=== PATIENT | female | born 1985 | race Caucasian/White ===

== ENCOUNTER 2020-02-22 20:55 | Emergency (ER) | payer OTHER, SELFPAY ==
[2020-02-22 21:00] VITALS: BP 133/91; PULSE 85; RESP 18; TEMP 36.3; O2SAT 100
--- NOTE | 2020-02-22 21:10 | ED.GENADULT ---
HPI - General Adult General Chief complaint: Unspecified Stated complaint: Perscription refill Time Seen by Provider: 02/22/20 21:07 Source: patient Mode of arrival: ambulatory Limitations: no limitations History of Present Illness HPI narrative: Patient is a 34-year-old female with a history of seizure disorder who presents to the emergency department because she is in need of a refill for her Lamictal prescription. Patient has been taking 400 mg of Lamictal twice daily for over 20 years. She follows with a neurologist Dr. Conrad, but was notified today that he left the neurology practice when she tried to refill her prescription and she was unable to have the prescription refilled. The neurology office was unable to schedule her an appointment or call in a prescription for her. She has not missed any doses today but is due for a dose tonight. She denies any recent illnesses. Her primary care physician is Dr. Herbert, she states that she recently established with him and did not try to call the office to see if he would refill the prescription but was referred to the emergency department Related Data Home Medications Medication Instructions Recorded Confirmed dextroamphetamine-amphetamine 02/22/20 lamotrigine 02/22/20 Allergies Allergy/AdvReac Type Severity Reaction Status Date / Time No Known Allergies Allergy Unverified 02/22/20 21:02 Review of Systems Review of Systems: Narrative: CONSTITUTIONAL: Denies fever CARDIOVASCULAR: Denies chest pain RESPIRATORY: Denies cough or dyspnea. GASTROINTESTINAL: Denies abdominal pain SKIN: Denies rash MUSCULOSKELETAL: Denies back pain NEUROLOGIC: Denies headache PMFSH Past Medical History Medical History (Updated 02/22/20 @ 21:20 by Ellyn Covington MD) Epilepsy Surgical History Surgical History (Updated 02/22/20 @ 21:20 by Ellyn Covington MD) History of appendectomy History of tonsillectomy Social History Social History (Updated 02/22/20 @ 21:21 by Ellyn Covington MD) Alcohol intake: never Substance use: never Living arrangements: with family Gender identity (if verbalized by the patient): Female Exam Narrative: Exam Narrative: GENERAL: Awake, alert, conversant HEAD: Normocephalic, atraumatic. EYES: PERRLA and EOMI. ENT: Nares clear, no rhinorrhea or epistaxis. Mucous membranes moist. NECK: Supple. CHEST: No respiratory distress, breathing even and non labored HEART: Regular rate, sinus rhythm ABDOMEN:Non distended, non tender EXTREMITIES: Normal range of motion. No edema. SKIN: Warm, dry, no rash. NEURO:No focal deficits. Alert and oriented x3 Course Vital Signs Vital signs: Vital Signs Temperature 36.3 C L 02/22/20 21:00 Pulse Rate 85 02/22/20 21:00 Respiratory Rate 18 02/22/20 21:00 Blood Pressure 133/91 H 02/22/20 21:00 Pulse Oximetry 100 02/22/20 21:00 Temperature 36.3 C L 02/22/20 21:00 Pulse Rate 85 02/22/20 21:00 Respiratory Rate 18 02/22/20 21:00 Blood Pressure 133/91 H 02/22/20 21:00 Pulse Oximetry 100 02/22/20 21:00 Medical Decision Making MDM Narrative Medical decision making narrative: I was able to verify the patient's prescription in her EMR. I will prescribe a 1 month prescription until patient is able to establish with a new neurologist. Pt has no other complaints. Pt then discharged home. Vital Signs Vital Signs: Vital Signs Temperature 36.3 C L 02/22/20 21:00 Pulse Rate 85 02/22/20 21:00 Respiratory Rate 18 02/22/20 21:00 Blood Pressure 133/91 H 02/22/20 21:00 Pulse Oximetry 100 02/22/20 21:00 Temperature 36.3 C L 02/22/20 21:00 Pulse Rate 85 02/22/20 21:00 Respiratory Rate 18 02/22/20 21:00 Blood Pressure 133/91 H 02/22/20 21:00 Pulse Oximetry 100 02/22/20 21:00 Discharge Plan Discharge Clinical Impression: Prescription refill Patient Disposition: Home, Self-Care Condition: Stable Additional Instructions: Please fo
== END 2020-02-22 21:34 | disposition home or self-care (01) ==
LOC: ANHED 21:26
PROVIDERS: Emergency Provider Emergency Medicine; PCP Emergency Medicine
DX: G40.909 Epilepsy, unspecified, not intractable, without status epilepticus (principal)
CPT/HCPCS: 99281

== ENCOUNTER 2024-06-29 10:20 | Outpatient (CLI) | payer OTHER, SELFPAY ==
--- NOTE | ~2024-06-29 | XR_ITS ---
Clinical Indication: Chest pain PA and lateral views of the chest: Comparison: 03/05/2014 Findings: The lungs are clear, without evidence of focal consolidation or pleural effusion. Cardiome diastinal silhouette is within normal limits. Bones and soft tissues are unremarkable. Impression: Normal chest. Reviewed, dictated and finalized at location . Impression: Normal chest.
--- OUTSIDE RECORDS SUMMARY | 2024-06-29 11:42 | XMS_ITS | Data Portability ---
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 Patient will come back in a year unless there are new symptoms. [email or web address] Not available 01/25/2024 15:49:28 Plan of Treatment Reminders Order Date Submit Date Provider Last Modified By Organization Details Last Modified Time Details Appointments None recorded. Lab hbcab (hepatitis B core Ab) igm, serum 2023 [facility] [place] (Lab), [address], [place], [address], 19:53:02 HBsAg (hepatitis B surface Ag), serum [address] [facility] [place] (Lab), [address], [place], [address], 4 19:52:59 hepatitis C virus Ab, serum [address] [facility] [place] (Lab), [address], [address], 4 19:52:59 HIV 1+2 AB + HIV 1 p24 Ag, qualitative immunoassay , serum [address] [facility] [place] (Lab), [address] [place], [address], 4 19:53:00 RPR (rapid plasma reagin), serum 2023 [facility] [place] (Lab), [address] [place], [address], 4 19:53:02 dhea-sulfat e, serum 2023 [facility] [place] (Lab), [address] [place], [address], 4 19:52:59 hormone panel, serum or plasma 2023 [facility] [place] (Lab), [address] [place], [address], 4 19:53:01 progesteron e, serum [address] [facility] [place] (Lab), [address] [place], [address], 4 19:53:00 prolactin, serum 2023 [facility] [place] (Lab), [address] [place], [address], 4 19:53:00 shbg (sex hormone-bin ding globulin), serum [address] [facility] [place] (Lab), [address] [place], [address], 4 19:53:01 TSH, serum or plasma [address] [facility] [place] (Lab), [address] [place], [address], 4 19:53:01 testosteron e free/testos terone total, ratio, serum 2023 [facility] [place] (Lab), [address], [place], [address], 4 19:53:02 CBC w/ auto diff [address] [facility] [place] (Lab), [address], [place], [address], 4 19:52:58 Referral None recorded. Procedures None recorded. Surgeries None recorded. Imaging US, pelvis, complete 2023 024 [facility], [address], [address], [place], [address], 5 04:09:52 US, pelvis [address], [address], [place], [address], 4 20:16:33 US, transvagina l [address], [address], [address], [place], [address], 4 20:16:33 US, pelvis, complete 2023 024 [facility], [address], [address], [place], [address], 4 04:03:47 US, pelvis 2022 023 [email or web address] [place], [address], [place], [address], 3 21:26:42 US, transvagina l 2022 023 [email or web address] [place], [address], [place], [address], 3 21:26:42 Medication Orders None recorded. Patient TargetsNo targets recorded. Patient InstructionsNo instructions recorded. Reason for Referral None Reported. Results Created Date Observation Date Name Description Value Unit Range Abnormal Flag Note LastModifiedBy Organization Detail LastModifiedTime 12/30/19 23 12/29/2022 HEPAT ITIS B SURFA CE ANTIG EN hepatitis B surface antigen Non-re active non-re active This assay was perfo rmed using [employer] ratio n reage nts and test kits. Value s obtai mary with other assay metho ds or kits canno t be used inter beltran eably . Not Available [facility] (Lab) [address], [place], [address], 01/01/2023 18:35:25 12/30/19 23 12/29/2022 HIV 1/2 ANTIG EN/AN TIBOD Y, REFLE X CONFI RMATI ON HIV antigen/anti body Nonrea ctive nonrea ctive HIV-1 antig en and HIV-1 /HIV- 2 antib odies were not detec dewayne. No labor atory evide nce of HIV infec tion. Not Available [facility] (Lab) [address], [place], [address], 01/01/2023 18:35:26 12/30/19 23 12/29/2022 HEPAT ITIS C ANTIB BLAS SCREE N, REFLE X TO CONFI RMATI ON hepatitis C antibody Non-re active non-re active Antib odies to HCV Not Detec dewayne, does not exclu de the possi bilit y of expos ure to HCV. Not Available [facility] (Lab) [address], [place], [address], 01/01/2023 18:35:26 12/30/19 23 12/29/2022 PROGE STERO NE progesterone 0.37 NG/mL This assay was perfo rmed using [employer] reage nts and test kits. Value s obtai mary with other assay metho ds or kits canno t be used inter beltran eably . Femal e Proge stero ne Range s: Folli cular phase 0.06- 0.89 ng/mL Ovula tion phase 0.12- 12.00 ng/mL Lutea l phase 1.83- 23.90 ng/mL Postm enopa usal< 0.05- 0.13 ng/mL Healt hy Pregn ant Women 1st Trime ster1 1.0-4 4.30 2nd Trime ster2 5.40- 83.30 3rd Trime ster5 8.70- 214.0 0 Not Available [facility] (Lab) [address] [place], [address], 01/01/2023 18:35:26 12/30/19 23 12/29/2022 PROLA CTIN prolactin, total 11.80 NG/mL 4.79-2 3.30 This assay was perfo rmed using [employer] ratio n reage nts and test kits. Value s obtai mary with other assay metho ds or kits canno t be used inter beltran eay . Not Available [facility] (Lab) [address] [place], [address], 01/01/2023 18:35:27 12/30/19 23 12/29/2022 FSH, LH, ESTRA DIOL estradiol 139.0 pg/mL This assay was perfo rmed using [employer] reage nts and test kits. Value s obtai mary with other assay metho ds or kits canno t be used inter beltran eay . Femal e Estra diol Range s: Folli cular phase 12.4- 233 pg/mL Ovula tion phase 41.0- 398 pg/mL Lutea l phase 22.3- 341 pg/mL Postm enopa usal< 5-138 pg/mL Healt hy Pregn ant Women 1st Trime ster1 54-32 43 pg/mL 2nd Trime ster1 561-2 1280 pg/mL 3rd Trime ster8 525-> 12905 pg/mL Not Available [facility] (Lab) [address] [place], [address], 01/01/2023 18:35:27 12/30/19 23 12/29/2022 FSH, LH, ESTRA DIOL FSH 4.3 mIU/m L This assay was perfo rmed using [employer] n reage nts and test kits. Value s obtai mary with other assay metho ds or kits canno t be used inter the [facility] . Femal es Folli cular : 3.5-1 2.5 mIU/m L Ovula tion: 4.7-2 1.5 mIU/m L Lutea l: 1.7-7 .7 mIU/m L Postm enopa use: 25.8- 134.8 mIU/m L Not Available [facility] (Lab) [address] , [place], [address], 01/01/2023 18:35:27 12/30/19 23 12/29/2022 FSH, LH, ESTRA DIOL LH 8.5 mIU/m L This assay was perfo rmed using [employer] reage nts and test kits. Value s obtai mary with other assay metho ds or kits canno t be used inter the [facility] . Femal es Mid-F ollic ular: 2.4-1 2.6 mIU/m L Mid-C ycle: 14.0- 95.6 mIU/m L Mid-L uteal : 1.0-1 1.4 mIU/m L Postm enopa use: 7.7-5 8.5 mIU/m L Not Available [facility] (Lab) [address], [place], [address], 01/01/2023 18:35:27 12/30/19 23 12/29/2022 TSH, REFLE X FREE T4 TSH 1.73 uIU/m L 0.30-5 .33 Not Available [facility] (Lab) [address] , [place], [address], 01/01/2023 18:35:28 12/30/19 23 12/29/2022 CBC W/DIF F WBC 5.2 10'3/ uL 3.6-10 .2 Not Available [facility] (Lab) [address], [place], [address], 01/01/2023 18:35:28 12/30/19 23 12/29/2022 CBC W/DIF F RBC 3.95 10'6/ uL (based on docume nted legal sex) 4.10-5 .30 low Not Available [facility] (Lab) [address], [place], [address], 01/01/2023 18:35:28 12/30/19 23 12/29/2022 CBC W/DIF F HGB 12.1 g/dL (based on docume nted legal sex) 11.9-1 5.8 Not Available [facility] (Lab) [address], [place], [address], 01/01/2023 18:35:28 12/30/19 23 12/29/2022 CBC W/DIF F HCT 37.7 % (based on docume nted legal sex) 37.4-4 8.3 Not Available [facility] (Lab) [address], [place], [address], 01/01/2023 18:35:28 12/30/19 23 12/29/2022 CBC W/DIF F MCV 95.4 fL 82.0-9 9.0 Not Available [facility] (Lab) [address], [place], [address], 01/01/2023 18:35:28 12/30/19 23 12/29/2022 CBC W/DIF F MCH 30.6 pg 27.0-3 3.0 Not Available [facility] (Lab) [address], [place], [address], 01/01/2023 18:35:28 12/30/19 23 12/29/2022 CBC W/DIF F MCHC 32.1 g/dL 32.0-3 6.0 Not Available [facility] (Lab) [address], [place], [address], 01/01/2023 18:35:28 12/30/19 23 12/29/2022 CBC W/DIF F RDW 13.0 % 11.0-1 5.0 Not Available [facility] (Lab) [address], [place], [address], 01/01/2023 18:35:28 12/30/19 23 12/29/2022 CBC W/DIF F plt 298 10'3/ uL 150-45 0 Not Available [facility] (Lab) [address], [place], [address], 01/01/2023 18:35:28 12/30/19 23 12/29/2022 CBC W/DIF F MPV 10.0 fL 9.8-12 .7 Not Available [facility] (Lab) [address], [place], [address], 01/01/2023 18:35:28 12/30/19 23 12/29/2022 CBC W/DIF F NRBC's 0.0 % 0 Not Available [facility] (Lab) [address], [place], [address], 01/01/2023 18:35:28 12/30/19 23 12/29/2022 CBC W/DIF F absolute NRBCs 0.0 10'3/ uL 0 Not Available [facility] (Lab) [address], [place], [address], 01/01/2023 18:35:28 12/30/19 23 12/29/2022 CBC W/DIF F neutrophils 61.6 % 37.0-7 2.0 Not Available [facility] (Lab) [address], [place], [address], 01/01/2023 18:35:28 12/30/19 23 12/29/2022 CBC W/DIF F lymphocytes 30.0 % 16.0-4 8.0 Not Available [facility] (Lab) [address], [place], [address], 01/01/2023 18:35:28 12/30/19 23 12/29/2022 CBC W/DIF F monocytes 4.4 % 4.0-14 .0 Not Available [facility] (Lab) [address], [place], [address], 01/01/2023 18:35:28 12/30/19 23 12/29/2022 CBC W/DIF F eosinophils 2.5 % 0.0-9. 0 Not Available [facility] (Lab) [address], [place], [address], 01/01/2023 18:35:28 12/30/19 23 12/29/2022 CBC W/DIF F basophils 1.3 % 0.0-2. 0 Not Available [facility] (Lab) [address], [place], [address], 01/01/2023 18:35:28 12/30/19 23 12/29/2022 CBC W/DIF F immature granulocytes 0.2 % no define d refere nce range Not Available [facility] (Lab) [address], [place], [address], 01/01/2023 18:35:28 12/30/19 23 12/29/2022 CBC W/DIF F absolute neutrophils 3.2 10'3/ uL 1.1-6. 0 Not Available [facility] (Lab) [address], [place], [address], 01/01/2023 18:35:28 12/30/19 23 12/29/2022 CBC W/DIF F absolute lymphocytes 1.6 10'3/ uL 0.7-3. 4 Not Available [facility] (Lab) [address], [place], [address], 01/01/2023 18:35:28 12/30/19 23 12/29/2022 CBC W/DIF F absolute monocytes 0.2 10'3/ uL 0.3-1. 0 low Not Available [facility] (Lab) [address], [place], [address], 01/01/2023 18:35:28 12/30/19 23 12/29/2022 CBC W/DIF F absolute eosinophils 0.1 10'3/ uL 0.0-0. 6 Not Available [facility] (Lab) [address], [place], [address], 01/01/2023 18:35:28 12/30/19 23 12/29/2022 CBC W/DIF F absolute basophils 0.1 10'3/ uL 0.0-0. 1 Not Available [facility] (Lab) [address], [place], [address], 01/01/2023 18:35:28 12/30/19 23 12/29/2022 CBC W/DIF F absolute immature granulocytes 0.0 10'3/ uL 0.00-0 .10 12/30 2:08 AM: P indic ates parti al resul ts on a panel have been relea sed. Addit ional resul ts will follo w. 12/30 2:09 AM: This resul t has been final verif ied. No addit ional or beltran ed resul ts are expec dewayne. Not Available [facility] (Lab) [address], [place], [address], 01/01/2023 18:35:28 12/30/19 23 12/29/2022 RPR SCREE N/REF NICOLE TITER /FTA RPR screen Nonrea ctive nonrea ctive Not Available [facility] (Lab) [address], [place], [address], 01/01/2023 18:35:28 12/30/19 23 12/29/2022 HEPAT ITIS B CORE, IGM hepatitis B core IgM antibody Negati ve negati ve Not Available [facility] (Lab) [address], [place], [address], 01/01/2023 18:35:29 12/30/19 23 12/29/2022 TESTO STERO NE, FREE( DIALY SIS) AND TOTAL (LC/M S/MS) testosterone , total 26 NG/dL 2-45 For addit ional alfredo manning e refer to http: //candelraia bonilla.que stdia gnost ics.c om/fa q/ Total Testo stero neLCM SMSFA Q165 (This link is being provi ded for madisonjennyfer teixeira nal/ educa bianka l purpo ses only. ) This test was devel oped and its lilo tical perfo rmanc e darren cteri stics have been deter mined by [employer] osttoya s [place]iezer [place], [place]. It has not been clear ed or appro felisa by the U.S. Food and Drug Admin istra tion. This assay has been valid ated pursu ant to the CLIA regul ation s and is used for clini cynthia purpo ses. Not Available [facility] (Lab) [address], [place], [address], 01/01/2023 18:35:29 12/30/19 23 12/29/2022 TESTO STERO NE, FREE( DIALY SIS) AND TOTAL (LC/M S/MS) testosterone , free 1.6 pg/mL 0.1-6. 4 This test was devel oped and its lilo tical perfo rmanc e darren cteri stics have been deter mined by [employer] rudy s [facility] [place] [place]. It has not been clear ed or appro felisa by the U.S. Food and Drug Admin istra tion. This assay has been valid ated pursu ant to the CLIA regul ation s and is used for clini cynthia purpo ses. Perfo rming Organ izati on [facility] ruffinjimena bonilla: Site ID: AMD Name: Roque Caalo ls Insti tabatha Addre ss: [id number] [employer] [facility] [address] [place], [place] Direc tor: Thalia Lawson MD PhD Not Available [facility] (Lab) [address] [place], [address], 01/01/2023 18:35:29 12/30/19 23 12/29/2022 IMAGE GUIDE D PAP AND HPV REGAR DLESS image guided Pap, HPV regardless of Pap result SEE RESULT S BELOW CASE REPOR T: Cytol ogy Gynec ologi cynthia Repor t Case: [id number] Autho shayan negron Provi magnus: Tahmina Simpson, PRABHU Colle cted: 12/29 1429 Order ing Locat ion: [place] Path[facility] Recei felisa: 12/30 0939 First Scree n: Alesia Fritz Rescr een: Bunny herrera, Kandi vivas, CT Speci men: Chikis sheikh Pap - Image d, Cervi x STATE MENT OF ADEQU ACY: Satis facto ry for evalu ation Trans forma tion zone compo nent prese nt FINAL DIAGN OSIS: Negat darrick for Intra epith elial Lesjimena bonilla or Jimena dove (NIL) . Elect marcelle bruno kolton d by Bunny herrera, Kandi vivas, CT on 2022 at 9:30 PM ----- ----- ----- ----- ----- ----- ----- ----- ----- ----- ----- ----- ----- ----- ----- ----- ----- ---- HPV RESUL TS: HPV mRNA E6/E7 : No HPV mRNA Detec dewayne NOTE: This high risk HPV mRNA assay detec ts fourt een high- risk HPV types (16, 18, 31, 33, 35, 39, 45, 51, 52, 56, 58, 59, 66, 68) witho ut diffe renti ation . COMME NT: This speci men was revie wed by a Cytot echno logis t and/o r Patho logis t (as indic ated in this repor t) after evalu ation using the Thinp rep Imagi ng Syste m. CLINI CYNTHIA INFOR MATIO N: Menst rual Statu s: LMP (if appli cable ): Clini cynthia Histo ry/Pr eviou s Pap: Type of Neopl aileen (if appli cable ): Signi fican t Clini cynthia Findi ngs: Other Histo ry: Hormo sebas (if appli cable ): PAP EDUCA BIANKA L NOTE: The Pap Test is a scree aguilar test with an inher ent false negat darrick rate. Liqui d-bas ed sampl ing may decre ase, but will not elimi sincere, false negat darrick resul ts. A negat darrick resul t does not precl ude the prese nce and/o r devel opmen t of disea se, since the prese nce of abnor mal cells in the sampl e depen ds on the locat ion of the lesio n and sampl ing techn ique. Marian nued regul ar scree aguilar is the best metho d of cance r preve ntion . If repor dewayne cytol ogic findi ng do not corre late with physi cynthia and/o r histo rical findi ngs, furth er inves tigat ion is recom shannan d, as clini tk warra nted. Not Available [facility] (Lab) [address], [place], [address], 01/01/2023 22:32:33 12/30/19 23 12/29/2022 TRICH OMONA S VAGIN NHUNG (RRNA ) trichomonas vaginalis ribosomal RNA (rrna) Negati ve negati ve Not Available [facility] (Lab) [address] [place], [address], 01/01/2023 22:32:34 12/30/19 23 12/29/2022 CT/GC (DONNIE) , THINP REP VIAL chlamydia trachomatis, PCR Negati ve negati ve Not Available [facility] (Lab) [address] [place], [address], 01/01/2023 22:32:34 12/30/19 23 12/29/2022 CT/GC (DONNIE) , THINP REP VIAL neisseria gonorrhoeae, PCR Negati ve negati ve Not Available [facility] (Lab) [address], [address], 01/01/2023 22:32:34 12/30/19 23 12/29/2022 pregn richard test, urine HCG negati ve Not Available [place] [address], [place], [address], 12/29/2022 10:46:04 01/25/20 24 01/25/2024 CBC W/DIF F WBC 5.1 10'3/ uL 3.5-10 .5 Not Available [facility] (Lab) [address], [place], [address], 02/02/2024 19:52:58 01/25/20 24 01/25/2024 CBC W/DIF F RBC 3.94 10'6/ uL (based on docume nted legal sex) 3.80-5 .20 Not Available [facility] (Lab) [address], [place], [address], 02/02/2024 19:52:58 01/25/20 24 01/25/2024 CBC W/DIF F HGB 11.5 g/dL (based on docume nted legal sex) 11.6-1 5.4 low Not Available [facility] (Lab) [address], [place], [address], 02/02/2024 19:52:58 01/25/20 24 01/25/2024 CBC W/DIF F HCT 35.8 % (based on docume nted legal sex) 34.0-4 5.0 Not Available [facility] (Lab) [address], [place], [address], 02/02/2024 19:52:58 01/25/20 24 01/25/2024 CBC W/DIF F MCV 90.9 fL 80.0-9 9.0 Not Available [facility] (Lab) [address], [place], [address], 02/02/2024 19:52:58 01/25/20 24 01/25/2024 CBC W/DIF F MCH 29.2 pg 27.0-3 4.0 Not Available [facility] (Lab) [address], [place], [address], 02/02/2024 19:52:58 01/25/20 24 01/25/2024 CBC W/DIF F MCHC 32.1 g/dL 32.0-3 5.5 Not Available [facility] (Lab) [address], [place], [address], 02/02/2024 19:52:58 01/25/20 24 01/25/2024 CBC W/DIF F RDW 12.8 % 11.0-1 5.0 Not Available [facility] (Lab) [address], [place], [address], 02/02/2024 19:52:58 01/25/20 24 01/25/2024 CBC W/DIF F plt 340 10'3/ uL 150-40 0 Not Available [facility] (Lab) [address], [place], [address], 02/02/2024 19:52:58 01/25/20 24 01/25/2024 CBC W/DIF F MPV 9.4 fL 8.8-12 .1 Not Available [facility] (Lab) [address], [place], [address], 02/02/2024 19:52:58 01/25/20 24 01/25/2024 CBC W/DIF F NRBC's 0.0 % 0.0 Not Available [facility] (Lab) [address], [place], [address], 02/02/2024 19:52:58 01/25/20 24 01/25/2024 CBC W/DIF F absolute NRBCs 0.0 10'3/ uL no refere nce range establ ished Not Available [facility] (Lab) [address], [place], [address], 02/02/2024 19:52:58 01/25/20 24 01/25/2024 CBC W/DIF F neutrophils 52.4 % 34.0-7 3.0 Not Available [facility] (Lab) [address], [place], [address], 02/02/2024 19:52:58 01/25/20 24 01/25/2024 CBC W/DIF F lymphocytes 38.7 % 15.0-5 0.0 Not Available [facility] (Lab) [address], [place], [address], 02/02/2024 19:52:58 01/25/20 24 01/25/2024 CBC W/DIF F monocytes 5.3 % 1.0-15 .0 Not Available [facility] (Lab) [address] [place], [address], 02/02/2024 19:52:58 01/25/20 24 01/25/2024 CBC W/DIF F eosinophils 1.8 % 0.0-8. 0 Not Available [facility] (Lab) [address] [place], [address], 02/02/2024 19:52:58 01/25/20 24 01/25/2024 CBC W/DIF F basophils 1.6 % 0.0-2. 0 Not Available [facility] (Lab) [address] [place], [address], 02/02/2024 19:52:58 01/25/20 24 01/25/2024 CBC W/DIF F immature granulocytes 0.2 % no define d refere nce range Not Available [facility] (Lab) [address] [place], [address], 02/02/2024 19:52:58 01/25/20 24 01/25/2024 CBC W/DIF F absolute neutrophils 2.7 10'3/ uL 1.5-8. 0 Not Available [facility] (Lab) [address], [place], [address], 02/02/2024 19:52:58 01/25/20 24 01/25/2024 CBC W/DIF F absolute lymphocytes 2.0 10'3/ uL 1.0-4. 0 Not Available [facility] (Lab) [address] [place], [address], 02/02/2024 19:52:58 01/25/20 24 01/25/2024 CBC W/DIF F absolute monocytes 0.3 10'3/ uL 0.2-1. 0 Not Available [facility] (Lab) [address], [place], [address], 02/02/2024 19:52:58 01/25/20 24 01/25/2024 CBC W/DIF F absolute eosinophils 0.1 10'3/ uL 0.0-0. 6 Not Available [facility] (Lab) [address], [place], [address], 02/02/2024 19:52:58 01/25/20 24 01/25/2024 CBC W/DIF F absolute basophils 0.1 10'3/ uL 0.0-0. 3 Not Available [facility] (Lab) [address] [place], [address], 02/02/2024 19:52:58 01/25/20 24 01/25/2024 CBC W/DIF F absolute immature granulocytes 0.0 10'3/ uL 0.00-0 .10 01/25 3:20 AM: P indic ates parti al resul ts on a panel have been relea sed. Addit ional resul ts will follo w. 01/25 3:20 AM: This resul t has been final verif ied. No addit ional or beltran ed resul ts are expec dewayne. Not Available [facility] (Lab) [address] [place], [address], 02/02/2024 19:52:58 01/25/20 24 01/25/2024 HEPAT ITIS C ANTIB BLAS SCREE N, REFLE X TO CONFI RMATI ON hepatitis C antibody Non-re active non-re active Antib odies to HCV Not Detec dewayne, does not exclu de the possi bilit y of expos ure to HCV. Not Available [facility] (Lab) [address], [place], [address], 02/02/2024 19:52:59 01/25/20 24 01/25/2024 DHEA SULFA TE DHEA-sulfate 121 ug/dL Femal e Range s Age(y ) Range (ug/d L) 10-15 34-28 0 15-20 65-36 8 20-25 148-4 07 25-35 99-34 0 35-45 61-33 7 45-55 35-25 6 55-65 19-20 5 65-75 9-246 > 75 12-15 4 Not Available [facility] (Lab) [address], [place], [address], 02/02/2024 19:52:59 01/25/20 24 01/25/2024 HEPAT ITIS B SURFA CE ANTIG EN hepatitis B surface antigen Non-re active non-re active This assay was perfo rmed using [employer] reage nts and test kits. Value s obtai mary with other assay metho ds or kits canno t be used inter beltran eably . Not Available [facility] (Lab) [address], [place], [address], 02/02/2024 19:52:59 01/25/20 24 01/25/2024 HIV 1/2 ANTIG EN/AN TIBOD Y, REFLE X CONFI RMATI ON HIV antigen/anti body Nonrea ctive nonrea ctive HIV-1 antig en and HIV-1 /HIV- 2 antib odies were not detec dewayne. No labor atory evide nce of HIV infec tion. Not Available [facility] (Lab) [address], [place], [address], 02/02/2024 19:53:00 01/25/20 24 01/25/2024 PROLA CTIN prolactin, total 9.17 NG/mL 4.79-2 3.30 This assay was perfo rmed using [employer] reage nts and test kits. Value s obtai mary with other assay metho ds or kits canno t be used inter [facility] . Not Available [facility] (Lab) [address] [place], [address], 02/02/2024 19:53:00 01/25/20 24 01/25/2024 PROGE STERO NE progesterone 1.64 NG/mL This assay was perfo rmed using [employer] reage nts and test kits. Value s obtai mary with other assay metho ds or kits canno t be used inter [facility] . Femal e Proge stero ne Range s: Folli cular phase 0.06- 0.89 ng/mL Ovula tion phase 0.12- 12.00 ng/mL Lutea l phase 1.83- 23.90 ng/mL Postm enopa usal <0.05 -0.13 ng/mL Healt hy Pregn ant Women 1st Trime ster 11.0- 44.30 2nd Trime ster 25.40 -83.3 0 3rd Trime ster 58.70 -214. 00 Not Available [facility] (Lab) [address] [place], [address], 02/02/2024 19:53:00 01/25/20 24 01/25/2024 FSH, LH, ESTRA DIOL estradiol 61.2 pg/mL This assay was perfo rmed using [employer] reage nts and test kits. Value s obtai mary with other assay metho ds or kits canno t be used inter [facility] . Femal e Estra diol Range s: Folli cular phase 12.4- 233 pg/mL Ovula tion phase 41.0- 398 pg/mL Lutea l phase 22.3- 341 pg/mL Postm enopa usal <5-13 8 pg/mL Healt hy Pregn ant Women 1st Trime ster 154-3 243 pg/mL 2nd Trime ster 1561- 74981 pg/mL 3rd Trime ster 8525- >3000 0 pg/mL Not Available [facility] (Lab) [address], [place], [address], 02/02/2024 19:53:01 01/25/20 24 01/25/2024 FSH, LH, ESTRA DIOL FSH 6.4 mIU/m L This assay was perfo rmed using [employer] n reage nts and test kits. Value s obtai mary with other assay metho ds or kits canno t be used inter beltran eably . Femal es Folli cular : 3.5-1 2.5 mIU/m L Ovula tion: 4.7-2 1.5 mIU/m L Lutea l: 1.7-7 .7 mIU/m L Postm enopa use: 25.8- 134.8 mIU/m L Not Available [facility] (Lab) [address], [place], [address], 02/02/2024 19:53:01 01/25/20 24 01/25/2024 FSH, LH, ESTRA DIOL LH 13.3 mIU/m L This assay was perfo rmed using [employer] reage nts and test kits. Value s obtai mary with other assay metho ds or kits canno t be used inter beltran eably . Femal es Mid-F ollic ular: 2.4-1 2.6 mIU/m L Mid-C ycle: 14.0- 95.6 mIU/m L Mid-L uteal : 1.0-1 1.4 mIU/m L Postm enopa use: 7.7-5 8.5 mIU/m L Not Available [facility] (Lab) [address] [place], [address], 02/02/2024 19:53:01 01/25/20 24 01/25/2024 TSH, REFLE X FREE T4 TSH 1.02 uIU/m L 0.30-5 .33 Not Available [facility] (Lab) [address], [place], [address], 02/02/2024 19:53:01 01/25/20 24 01/25/2024 HUMAN SEX HORMO NE JOHN NG GLOBU AYAZ sex hormone binding globulin 103.4 nmole s/L 18.2-1 35.5 Not Available [facility] (Lab) [address], [place], [address], 02/02/2024 19:53:01 01/25/20 24 01/25/2024 RPR SCREE N, REFLE X TITER /CONF IRMAT ION RPR screen Nonrea ctive nonrea ctive Not Available [facility] (Lab) [address], [place], [address], 02/02/2024 19:53:02 01/25/20 24 01/25/2024 HEPAT ITIS B CORE, IGM hepatitis B core IgM antibody Non-re active non-re active IgM anti- HBc not detec dewayne. Does not exclu de the possi bilit y of expos ure to or infec tion with HBV. Not Available [facility] (Lab) [address] [place], [address], 02/02/2024 19:53:02 01/25/20 24 01/25/2024 TESTO STERO NE, FREE( DIALY SIS) AND TOTAL (LC/M S/MS) testosterone , total 27 NG/dL 2-45 For addit ional infor alfredo rubio e refer to http: //[facility] jenny bonilla.que stdia gnost ics.c om/fa q/ Total Testo stero neLCM SMSFA Q165 (This link is being provi ded for infor lluvia bui/ educa bianka l purpo ses only. ) This test was devel oped and its lilo tical perfo rmanc e darren cteri stics have been deter mined by [facility] tabatha Castro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 [id number] Emeterio Calculation Initial Emeterio Date Initial Exam Date Initial Exam Provider Initial Ultrasound Date Last Menstrual Period Date Ultra Sound Weeks Gestation 0 Eighteen To Twenty Week Emeterio Update Ultra Sound Date Fundal Height At Umbil Quickening Date Ultra Sound Latest Weeks Gestation Final Emeterio Confirmed By Final Emeterio Confirmed Date Final Emeterio Date Ultra Sound Latest Days Gestation 0 0 Menstrual History Last Menstrual Date Menses Monthly On Bcp Conception Prior Menses Frequency Hcg Plus Date Menarche Onset Age Delivery Information Delivery Date Delivery Type Labor Anesthesia Weeks Gestation Incision Type Labor Labor Length Hrs Delivered By Post Complications Tubal Sterilization Discharge Date Comments 7 Discharge Information Feeding Method Contraceptive Method Maternal HG B and HCT Levels Ob Episode Information Episode Created Date Number of Fetuses Patient Bloodtype Patient rh Status Prepregnancy Weight lbs Domestic Partner Domestic Partner Phone Father Name Team Lead Status 06/21/19 21 1 CLOSED Fetus Data First Name Last Name Admitted to NICU Weight (g) Sex Living Outcome Pediatric Complications Fetus ID Race Codes Race Delivery Type , Spontane ous 9299 Emeterio Calculation Initial Emeterio Date Initial Exam Date Initial Exam Provider Initial Ultrasound Date Last Menstrual Period Date Ultra Sound Weeks Gestation 0 Eighteen To Twenty Week Emeterio Update Ultra Sound Date Fundal Height At Umbil Quickening Date Ultra Sound Latest Weeks Gestation Final Emeterio Confirmed By Final Emeterio Confirmed Date Final Emeterio Date Ultra Sound Latest Days Gestation 0 0 Menstrual History Last Menstrual Date Menses Monthly On Bcp Conception Prior Menses Frequency Hcg Plus Date Menarche Onset Age Delivery Information Delivery Date Delivery Type Labor Anesthesia Weeks Gestation Incision Type Labor Labor Length Hrs Delivered By Post Complications Tubal Sterilization Discharge Date Comments 5 Discharge Information Feeding Method Contraceptive Method Maternal HG B and HCT Levels Ob Episode Information Episode Created Date Number of Fetuses Patient Bloodtype Patient rh Status Prepregnancy Weight lbs Domestic Partner Domestic Partner Phone Father Name Team Lead Status 06/21/19 21 1 CLOSED Fetus Data First Name Last Name Admitted to NICU Weight (g) Sex Living Outcome Pediatric Complications Fetus ID Race Codes Race Delivery Type 3685.43 5 M Full Term 9298 Vaginal Delivery Emeterio Calculation Initial Emeterio Date Initial Exam Date Initial Exam Provider Initial Ultrasound Date Last Menstrual Period Date Ultra Sound Weeks Gestation 0 Eighteen To Twenty Week Emeterio Update Ultra Sound Date Fundal Height At Umbil Quickening Date Ultra Sound Latest Weeks Gestation Final Emeterio Confirmed By Final Emeterio Confirmed Date Final Emeterio Date Ultra Sound Latest Days Gestation 0 0 Menstrual History Last Menstrual Date Menses Monthly On Bcp Conception Prior Menses Frequency Hcg Plus Date Menarche Onset Age Delivery Information Delivery Date Delivery Type Labor Anesthesia Weeks Gestation Incision Type Labor Labor Length Hrs Delivered By Post Complications Tubal Sterilization Discharge Date Comments 3 41 Discharge Information Feeding Method Contraceptive Method Maternal HG B and HCT Levels
--- OUTSIDE RECORDS SUMMARY | 2024-06-29 11:42 | XMS_ITS | Clinical Summary ---
Author Organization [facility] [employer] Address [address] [place] [address] Care Team Providers Care Sodder Name Role Phone Unavailable Primary Care Provider Unavailabl e Source Comments [facility] [employer],non-owned Affiliates and Associated Physician Practices is amultiple site organization consisting of ambulatory clinics and hospital sitesin [place], [place], [place] and [place]. This disclosure is being madepursuant to the Care Everywhere program and may not contain all information available regarding this patient. Last updated 17[employer] Allergies No known active allergies Medications * Be aware that medications may not be up to date on this document. Alwaysverify current medications with the patient. lamoTRIgine (LAMICTAL) 200 MG tabletIndications :Epilepsy Take 400 mg by mouth 2 times daily. Indications: Epilepsy Active FOLIC ACID POIndications:Sei zure disorder (HCC),Tobacco smoking complicating (HCC) Take by mouth. Active VITAMINS POIndications:Sei zure disorder (HCC),Tobacco smoking complicating (HCC) Take by mouth. Active Active Problems Problem Noted Date Diagnosed Date Seizure disorder 10/17/2011 Tobacco smoking complicating 2 Family History Medical History Relation Name Comments Blindness Father Hearing Loss - Unspecified Father High Blood Pressure Father Relation Name Status Comments Father Social History Tobacco Use Types Packs/Day Years Used Date Smoking Tobacco: Every Day Cigarettes Alcohol Use Standard Drinks/Week Comments No 0 (1 standard drink = 0.6 oz pur e alcohol) prior to Comments No Sex and Gender Information Value Date Recorded Sex Assigned at Not on file Legal Sex Female 1:49 PM [employer] Gender Identity Not on file Sexual Orientation Not on file Last Filed Vital Signs Vital Sign Reading Time Taken Comments Blood Pressure 112/62 01/20/2012 11:38 AM [employer] ST[employer] CLERK Pulse 90 01/20/2012 11:40 AM [employer] ST[employer] CLERK Temperature - - Respiratory Rate 13 01/20/2012 11:40 AM [employer] ST[employer] CLERK Oxygen Saturation 98% 01/20/2012 11:40 AM [employer] ST[employer] CLERK Inhaled Oxygen Concentration - - Weight 74.4 kg (164 lb) 01/20/2012 11:38 AM [employer] ST[employer] CLERK Height 154.9 cm (5' 1 ) 01/20/2012 11:40 AM [employer] ST[employer] CLERK Body Mass Index 30.99 01/20/2012 11:38 AM [employer] ST[employer] CLERK Plan of Treatment Health Maintenance Due Date Last Done Comments HIV SCREENING 2001 HEPATITIS C SCREENING 07/18/2004 DTAP/TDAP/TD VACCINES (1 - Tdap) 2005 HEPATITIS B VACCINE (1 of 3 - 19+ 3-dose series) 2005 COVID-19 VACCINE ( - 2023-2 5 season) 2023 DEPRESSION SCREENING 03/02/2024 INFLUENZA VACCINE (Season Ended) 2024 ZOSTER VACCINE (1 of 2) 2036 HIB VACCINE Aged Out No longer eligi ble based on patient's age to complete this topic HPV VACCINE Aged Out No longer eligi ble based on patient's age to complete this topic MENINGOCOCCAL (Group B) VACC INE SHARED DECISION-MAKING Aged Out No longer eligibl e based on patient's age to complete this topic MENINGOCOCCAL GROUPS A/C/Y/W VACCINE Aged Out No longer eligible b ased on patient's age to complete this topic PNEUMOCOCCAL VACCINE Aged Out No long er eligible based on patient's age to complete this topic
--- OUTSIDE RECORDS SUMMARY | 2024-06-29 11:42 | XMS_ITS | Clinical Summary ---
Author Organization [facility] Address [address] [place] [address] Care Team Providers Care Barn Hand Name Role Phone Pankajjose aRosita DO Primary Care Provider [phone] Social History Tobacco Use Types Packs/Day Years Used Date Smoking Tobacco: Never Assessed Comments Unknown Sex and Gender Information Value Date Recorded Sex Assigned at Not on file Legal Sex Female 5:21 PM CDT Gender Identity Not on file Sexual Orientation Not on file Last Filed Vital Signs Vital Sign Reading Time Taken Comments Blood Pressure 114/62 06/05/2016 4:32 PM CDT Pulse 90 06/05/2016 4:32 PM CDT Temperature - - Respiratory Rate - - Oxygen Saturation - - Inhaled Oxygen Concentration - - Weight 55.8 kg (123 lb) 06/05/2016 4:32 PM CDT Height 156.2 cm (5' 1.5 ) 06/05/2016 4:35 PM CDT Body Mass Index 22.86 06/05/2016 4:32 PM CDT Plan of Treatment Health Maintenance Due Date Last Done Comments Cervical Cancer Screening Pa p Smear (Age 30 to 64) Every 3 Years 1986 Annual Physical 1989 DTaP, Tdap and Td Vaccines ( 1 - Tdap) 2005 Hepatitis B Vaccines (1 of 3 - 19+ 3-dose series) 2005 Cervical Cancer Screening Pa p with HPV Testing (Age 30 to 64) Every 5 Years 2016 Cervical Cancer Screening with HPV 2016 COVID-19 Vaccine (2023-2 5 season) 2023 Hepatitis C Completed 05/06/2013 HPV Vaccines Aged Out No longer eligi ble based on patient's age to complete this topic Meningococcal B Vaccine Aged Out No l onger eligible based on patient's age to complete this topic Meningococcal Vaccine Aged Out No ariel harika eligible based on patient's age to complete this topic Pneumococcal Vaccine: Pediat rics (0 to 5 Years) and At-Risk Patients (6 to 49 Years) Aged Out No longer eligi ble based on patient's age to complete this topic RSV Immunizations Under 20 Months Aged Out No longer eligible based on patient's age to complete this topic Procedures Procedure Name Priority Date/Time Associated Diagnosis Comments HEPATITIS A,B,& C Routine 05/06/2013 9:4 2 AM RN PLACEMENT from Last 3 Months or Most Recently Relevant to Health Maintenance Results * HEPATITIS A,B,& C (05/06/2013 9:42 AM RN PLACEMENT) HAV IGM NON-REACTIVE TESTING PERFORMED AT [facility], A MEMBER OF THE [facility]. NR [employer] TO EPIC CONVERSION HEPATITIS B SURFACE AG NON-REACTIVE TESTING PERFORMED AT [facility], A MEMBER OF THE [facility]. NR [employer] TO EPIC CONVERSION HEP B SURFACE AB NON-REACTIVE TESTING PERFORMED AT [facility], A MEMBER OF THE [facility]. [employer] TO EPIC CONVERSION HEP B CORE TOTAL AB NON-REACTIVE TESTING PERFORMED AT [facility], A MEMBER OF THE [facility]. NR [employer] TO EPIC CONVERSION HEPATITIS C AB NON-REACTIVE TESTING PERFORMED AT [facility], A MEMBER OF THE [facility]. NR [employer] TO EPIC CONVERSION 05/06/2013 9:42 AM RN PLACEMENT 05/06/2013 9:42 AM RN PLACEMENT Narrative [employer] TO EPIC CONVERSION - 05/09/2013 3:45 PM CDT Result Communication: Call patient with results Rosita Patiño DO LABORATORY Final Result [employer] TO EPIC CONVERSION from Last 3 Months or Most Recently Relevant to Health Maintenance Care Teams Barn Hand Relationship Specialty Start Date End Date Rosita Patiño DO [address] [place] [address] [facility] - General 06/05/16
--- OUTSIDE RECORDS SUMMARY | 2024-06-29 11:42 | XMS_ITS | Continuity of Care Document ---
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 Name Role Phone Ori Herbert MD Unavailable Unavailable Allergies, Adverse Reactions, Alerts Substance Reaction Status Criticality No Known Allergies Active No Inform ation Medications Medication Instructions Dosage Effective Dates (start - stop) Status Comments Adderall 20 mg tablet take 20 mg in AM and 10 mg in the early afternoon - Active buspirone 10 mg tablet take 1 tablet by oral route 2 times every day 10 MG - Active avoid driving or operate machines Lamictal 200 mg tablet take 2 tablet by oral route 2 times every day 400 MG - Active Procedures Procedure Date OFFICE/OUTPATIENT VISIT, EST OFFICE/OUTPATIENT VISIT, EST OFFICE/OUTPATIENT VISIT, EST PREV VISIT, EST, AGE 18-39 OFFICE/OUTPATIENT VISIT, EST OFFICE/OUTPATIENT VISIT, EST OFFICE/OUTPATIENT VISIT, EST OFFICE/OUTPATIENT VISIT, EST OFFICE/OUTPATIENT VISIT, EST OFFICE/OUTPATIENT VISIT, EST OFFICE/OUTPATIENT VISIT, EST PREV VISIT, EST, AGE 18-39 OFFICE/OUTPATIENT VISIT, EST OFFICE/OUTPATIENT VISIT, EST OFFICE/OUTPATIENT VISIT, EST OFFICE/OUTPATIENT VISIT, EST OFFICE/OUTPATIENT VISIT, EST OFFICE/OUTPATIENT VISIT, EST OFFICE/OUTPATIENT VISIT, EST OFFICE/OUTPATIENT VISIT, EST OFFICE/OUTPATIENT VISIT, EST OFFICE/OUTPATIENT VISIT, EST OFFICE/OUTPATIENT VISIT, EST OFFICE/OUTPATIENT VISIT, EST PREV VISIT, EST, AGE 18-39 OFFICE/OUTPATIENT VISIT, EST OFFICE/OUTPATIENT VISIT, EST OFFICE/OUTPATIENT VISIT, EST OFFICE/OUTPATIENT VISIT, EST PREV VISIT, EST, AGE 18-39 OFFICE/OUTPATIENT VISIT, EST OFFICE/OUTPATIENT VISIT, EST OFFICE/OUTPATIENT VISIT, EST OFFICE/OUTPATIENT VISIT, EST OFFICE/OUTPATIENT VISIT, EST OFFICE/OUTPATIENT VISIT, EST PREV VISIT, EST, AGE 18-39 OFFICE/OUTPATIENT VISIT, EST OFFICE/OUTPATIENT VISIT, EST OFFICE/OUTPATIENT VISIT, EST OFFICE/OUTPATIENT VISIT, EST PREV VISIT, EST, AGE 18-39 OFFICE/OUTPATIENT VISIT, EST OFFICE/OUTPATIENT VISIT, EST OFFICE/OUTPATIENT VISIT, EST OFFICE/OUTPATIENT VISIT, EST PREV VISIT, EST, AGE 18-39 OFFICE/OUTPATIENT VISIT, EST OFFICE/OUTPATIENT VISIT, EST OFFICE/OUTPATIENT VISIT, EST OFFICE/OUTPATIENT VISIT, EST PREV VISIT, NEW, AGE 18-39 Advance Directives Directive Yes / No Effective Date File Name No Information Encounters Encounter Description Practice Location Reason(s) For Visit Diagnoses Date Provider Providers Copied on Encounter OFFICE/OUTPA TIENT VISIT, EST [facility], [address] [place] [address] [facility] [place], [address], tel:[phone] [facility] chest pain1 (chief complaint) Ant chest-wall pain May-3 0- 5 Keon Sanchez [address], [place], [place], [address] , [place]. tel:[phone] [facility], [address], [place], [place], [address], [place] tel:[phone] [facility] No Information May-2 0- 5 Keon Rehman. [address], [place], [place], [address] , [place]. tel:[phone] OFFICE/OUTPA TIENT VISIT, [facility], [address], [place], [place], [address], [place] tel:[phone] [facility] ADD (chief complaint) anxiety1 (chief complaint) Attention deficitGeneralized Anxiety Disorder 5 Keon Sanchez [address], [place], [place], [address] , [place]. tel:[phone] OFFICE/OUTPA TIENT VISIT, EST [facility], [address], [place], [address], [place] [phone] [facility] ADD (chief complaint) Attention deficit 5 Keon Sanchez [address], [place], [place], [address] , [place]. [phone] PREV VISIT, EST, AGE 18-39 [facility], [address], [place], [place], [address], [place] tel:[phone] [facility] physical (chief complaint) Encounter for general adult medical examination without abnormal findings 5 Keon Rehman. [address], [place], [place], [address] , [place]. tel:[phone] OFFICE/OUTPA TIENT VISIT, [facility], [address], [place], [place], [address], [place] tel:[phone] [facility] ADD (chief complaint) anxiety1 (chief complaint) Attention deficitGeneralized Anxiety Disorder Dec 4 Keon Rehman. [address], [place], [place], [address] , [place]. tel:[phone] OFFICE/OUTPA TIENT VISIT, [facility], [address], [place], [place], [address], [place] tel:[phone] [facility] ADD (chief complaint) anxiety1 (chief complaint) Attention deficitGeneralized Anxiety Disorder 4 Keon Rehman. [address], [place], [place], [address] , [place]. tel:[phone] OFFICE/OUTPA TIENT VISIT, [facility], [address], [place], [place], [address], [place] tel:[phone] [facility] ADD (chief complaint) anxiety1 (chief complaint) Attention deficitGeneralized Anxiety Disorder 4 Keon Rehman. [address], [place], [place], [address] , [place]. tel:[phone] OFFICE/OUTPA TIENT VISIT, [facility], [address], [place], [place], [address], [place] tel:[phone] [facility] ADD (chief complaint) anxiety1 (chief complaint) cramp1 (chief complaint) Generalized Anxiety DisorderAttention deficitIrregular period 4 Keon Rehman. [address], [place], [place], [address] , [place]. tel:[phone] OFFICE/OUTPA TIENT VISIT, [facility], [address], [place], [place], [address], [place] tel:[phone] [facility] ADD (chief complaint) anxiety1 (chief complaint) Attention deficitGeneralized Anxiety DisorderEpilepsy May-0 4 Keon Rehman. [address], [place], [place], [address] , [place]. tel:[phone] OFFICE/OUTPA TIENT VISIT, [facility], [address], [place], [place], [address], [place] tel:[phone] [facility] anxiety1 (chief complaint) ADD (chief complaint) Attention deficitGeneralized Anxiety Disorder 4 Keon Rehman. [address], [place], [place], [address] , [place]. tel:[phone] OFFICE/OUTPA TIENT VISIT, [facility], [address], [place], [place], [address], [place] tel:[phone] [facility] ADD (chief complaint) anxiety1 (chief complaint) Generalized Anxiety DisorderAttention deficit 4 Keon Rehman. [address], [place], [place], [address] , [place]. tel:[phone] PREV VISIT, [facility], AGE 18-39 [facility], [address], [place], [place], [address], [place] tel:[phone] [facility] physical (chief complaint) Encounter for general adult medical examination without abnormal findings 4 Keon Rehamn. [address], [place], [place], [address] , [place]. tel:[phone] OFFICE/OUTPA TIENT VISIT, [facility], [address], [place], [place], [address], [place] tel:[phone] [facility] anxiety1 (chief complaint) ADD (chief complaint) fatigue1 (chief complaint) Attention deficitGeneralized Anxiety DisorderFatigue 3 Keon Rehman. [address], [place], [place], [address] , [place]. tel:[phone] OFFICE/OUTPA TIENT VISIT, [facility], [address], [place], [place], [address], [place] tel:[phone] [facility] ADD (chief complaint) anxiety1 (chief complaint) Attention deficitGeneralized Anxiety Disorder 3 Keon Rehman. [address], [place], [place], [address] , [place]. tel:[phone] OFFICE/OUTPA TIENT VISIT, [facility], [address], [place], [place], [address], [place] tel:[phone] [facility] ADD (chief complaint) Attention deficit 3 Herbert Ori. [address], [place], [place], [address] , [place]. tel:[phone] OFFICE/OUTPA TIENT VISIT, [facility], [address], [place], [place], [address], [place] tel:[phone] [facility] ADD (chief complaint) seizure1 (chief complaint) Attention deficitEpilepsy Oct- 3 Herbert Ori. [address], [place], [place], [address] , [place]. tel:[phone] OFFICE/OUTPA TIENT VISIT, [facility], [address], [place], [place], [address], [place] tel:[phone] [facility] ADD (chief complaint) Attention deficit 3 Herbert Ori. [address], [place], [place], [address] , [place]. tel:[phone] OFFICE/OUTPA TIENT VISIT, [facility], [address], [place], [place], [address], [place] tel:[phone] [facility] ADD (chief complaint) Attention deficit 3 Herbert Ori. [address], [place], [place], [address] , [place]. tel:[phone] OFFICE/OUTPA TIENT VISIT, [facility], [address], [place], [place], [address], [place] tel:[phone] [facility] ADD (chief complaint) Attention deficit 3 Keon Ori. [address], [place], [place], [address] , [place]. tel:[phone] OFFICE/OUTPA TIENT VISIT, [facility], [address], [place], [place], [address], [place] tel:[phone] [facility] ADD (chief complaint) Attention deficit June-3 0- 3 Keon Rehman. [address], [place], [place], [address] , [place]. tel:[phone] OFFICE/OUTPA TIENT VISIT, [facility], [address], [place], [place], [address], [place] tel:[phone] [facility] ADD (chief complaint) Attention deficit May- 3 Keon Rehman. [address], [place], [address] , [place]. tel:[phone] OFFICE/OUTPA TIENT VISIT, [facility], [address], [place], [place], [address], [place] tel:[phone] [facility] ADD (chief complaint) foot pain1 (chief complaint) Attention deficitPain in right foot Apr-2 3 Herbert Ori. [address], [place], [place], [address] , [place]. tel:[phone] OFFICE/OUTPA TIENT VISIT, [facility], [address], [place], [place], [address], [place] tel:[phone] [facility] ADD (chief complaint) weight gain1 (chief complaint) Attention deficitAbnormal weight gain Mar-0 2- 3 Herbert Ori. [address], [place], [place], [address] , [place]. tel:[phone] OFFICE/OUTPA TIENT VISIT, [facility], [address], [place], [place], [address], [place] tel:[phone] [facility] ADD (chief complaint) weight gain1 (chief complaint) Abnormal weight gainAttention deficit Mar- 3 Keon Rehman. [address], [place], [address] , [place]. tel:[phone] PREV VISIT, EST, AGE 18-39 [facility], [address], [place], [place], [address], [place] tel:[phone] [facility] physical (chief complaint) Encounter for general adult medical examination without abnormal findings 3 Herbert Ori. [address], [place], [place], [address] , [place]. [phone] OFFICE/OUTPA TIENT VISIT, [facility], [address], [place], [place], [address], [place] tel:[phone] [facility] ADD (chief complaint) back pain1 (chief complaint) weight loss1 (chief complaint) Attention deficitAbnormal weight lossMuscle spasm of back Dec- 2 Herbert Ori. [address], [place], [place], [address] , [place]. tel:[phone] OFFICE/OUTPA TIENT VISIT, [facility], [address], [place], [place], [address], [place] tel:[phone] [facility] low back pain1 (chief complaint) ADD (chief complaint) Muscle spasm of backAttention deficit 2 Herbert Ori. [address], [place], [place], [address] , [place]. tel:[phone] OFFICE/OUTPA TIENT VISIT, EST [facility], [address], [place], [place], [address], [place] tel:[phone] [facility] ADD (chief complaint) back pain1 (chief complaint) Attention deficitMuscle spasm of back 2 Herbert Ori. [address], [place], [place], [address] , [place]. [phone] OFFICE/OUTPA TIENT VISIT, [facility], [address], [place], [place], [address], [place] tel:[phone] [facility] epileps1 (chief complaint) ADD (chief complaint) EpilepsyAttention deficit Apr-0 2- 2 Keon Sanchez [address], [place], [place], [address] , [place]. tel:[phone] PREV VISIT, EST, AGE 18-39 [facility], [address], [place], [place], [address], [place] [phone] [facility] physical (chief complaint) Encounter for general adult medical examination without abnormal findings Jan-0 - 1 Keon Sanchez [address], [place], [place], [address] , [place]. tel: [phone] OFFICE/OUTPA TIENT VISIT, [facility], [address], [place], [place], [address], [place] tel:[phone] [facility] pink eye1 (chief complaint) Acute follicular conjunctivitis, right eye Nov-0 7 1 Keon Sanchez [address], [place], [place], [address] , [place]. tel: [phone] OFFICE/OUTPA TIENT VISIT, [facility], [address], [place], [place], [address], [place] [phone] [facility] ADD (chief complaint) Attention deficit Nov-0 6 1 Keon Sanchez [address], [place], [place], [address] , [place]. tel: [phone] OFFICE/OUTPA TIENT VISIT, EST [facility], [address], [place], [place], [address], [place] tel:[phone] [facility] add (chief complaint) Attention deficit 0 1 Keon Sanchez [address], [place], [place], [address] , [place]. tel:[phone] OFFICE/OUTPA TIENT VISIT, [facility], [address], [place], [place], [address], [place] tel:[phone] [facility] ADD (chief complaint) Attention deficit May-2 1 Keon Sanchez [address], [place], [place], [address] , [place]. tel:[phone] OFFICE/OUTPA TIENT VISIT, EST [facility], [address], [place], [place], [address], [place] [phone] [facility] ADD (chief complaint) Attention deficit Mar- 1 Keon Rehman. [address], [place], [place], [address] , [place]. tel:[phone] OFFICE/OUTPA TIENT VISIT, EST [facility], [address], [place], [place], [address], [place] tel:[phone] [facility] ADD (chief complaint) seizure1 (chief complaint) Attention deficitEpilepsy 0 Keon Sanchez [address], [place], [place], [address] , [place]. tel:[phone] PREV VISIT, EST, AGE 18-39 [facility], [address], [place], [place], [address], [place] tel:[phone] [facility] physical (chief complaint) Encounter for general adult medical examination without abnormal findings Oct- 0 Keon Rehman. [address], [place], [place], [address] , [place]. tel:[phone] OFFICE/OUTPA TIENT VISIT, EST [facility], [address], [place], [place], [address], [place] tel:[phone] [facility] ADD (chief complaint) Attention deficit Aug-0 0 Keon Sanchez [address], [place], [place], [address] , [place]. tel:[phone] OFFICE/OUTPA TIENT VISIT, EST [facility], [address], [place], [place], [address], [place] tel:[phone] [facility] ADD (chief complaint) Attention deficitEpilepsy 0 Keon Rehman. [address], [place], [place], [address] , [place]. tel:[phone] Referring Provider: Joan [address], [place], [place], [address]. tel:[phone] OFFICE/OUTPA TIENT VISIT, [facility], [address], [place], [place], [address], [place] [phone] [facility] ADD (chief complaint) EpilepsyAttention deficit 0 Keon Rehman. [address], [place], [place], [address] , [place]. tel:[phone] Referring Provider: Joan [address], [place], [place], [address]. tel:[phone] OFFICE/OUTPA TIENT VISIT, [facility], [address], [place], [place], [address], [place] [phone] [facility] ADD (chief complaint) epilepsy1 (chief complaint) Attention deficitEpilepsy 9 Keon Rehman. [address], [place], [place], [address] , [place]. tel:[phone] Referring Provider: Joan Calero [address], [place], [place], [address]. tel:[phone] PREV VISIT, EST, AGE 18-39 [facility], [address], [place], [place], [address], [place] [phone] [facility] PHysical (chief complaint) Encntr for general adult medical exam w/o abnormal findings 9 Keon Rehman. [address], [place], [address] , [place]. tel:[phone] Referring Provider: Joan Calero [address], [place], [place], [address]. tel:[phone] OFFICE/OUTPA TIENT VISIT, [facility], [address], [place], [place], [address], [place] tel:[phone] [facility] ADD (chief complaint) weight loss1 (chief complaint) anxiety1 (chief complaint) Attention deficitAbnormal weight lossViral infectionGeneralize d Anxiety Disorder May- 9 Keon Sanchez [address], [place], [place], [address] , [place]. tel:[phone] Referring Provider: Joan [address]ero [address], [place], [place], [address]. tel:[phone] OFFICE/OUTPA TIENT VISIT, [facility], [address], [place], [place], [address], [place] tel:[phone] [facility] ADD (chief complaint) Epilepsy1 (chief complaint) EpilepsyAttention deficit 9 Keon Sanchez [address], [place], [place], [address] , [place]. tel:[phone] Referring Provider: Joan Calero [address], [place], [place], [address]. tel:[phone] OFFICE/OUTPA TIENT VISIT, [facility], [address], [place], [place], [address], [place] tel:[phone] [facility] ADD (chief complaint) epilepsy1 (chief complaint) EpilepsyAttention deficit 8 Keon Sanchez [address], [place], [place], [address] , [place]. tel:[phone] Referring Provider: Joan Calero [address], [place], [place], [address]. tel:[phone] OFFICE/OUTPA TIENT VISIT, [facility], [address], [place], [place], [address], [place] tel:[phone] [facility] epilepsy1 (chief complaint) ADD (chief complaint) EpilepsyAttention deficit 8 Keon Sanchez [address], [place], [place], [address] , [place]. tel:[phone] Referring Provider: Ori Herbert, [address], [place], [place], [address]. tel:[phone] PREV VISIT, EST, AGE 18-39 [facility], [address], [place], [place], [address], [place] tel:[phone] [facility] Physical1 (chief complaint) Encntr for general adult medical exam w/o abnormal findings 8 Keon Rehman. [address], [place], [place], [address] , [place]. tel:[phone] Referring Provider: Ori Herbert [address], [place], [place], [address]. tel:[phone] OFFICE/OUTPA TIENT VISIT, [facility], [address], [place], [place], [address], [place] tel:[phone] [facility] ADD (chief complaint) epilepsy1 (chief complaint) EpilepsyAttention deficit 8 Keon Rehman. [address], [place], [place], [address] , [place]. [phone] Referring Provider: Ori Herbert, [address], [place], [place], [address]. tel:[phone] OFFICE/OUTPA TIENT VISIT, [facility], [address], [place], [place], [address], [place] tel:[phone] [facility] ADD (chief complaint) Attention deficit 7 Keon Rehman. [address], [place], [address] , [place]. [phone] Referring Provider: Ori Herbert, [address], [place], [place], [address]. tel:[phone] OFFICE/OUTPA TIENT VISIT, [facility], [address], [place], [place], [address], [place] tel:[phone] [facility] ADD (chief complaint) epilepsy1 (chief complaint) EpilepsyAttention deficit 7 Keon Rehman. [address], [place], [address] , [place]. [phone] Referring Provider: Joan Calero [address], [place], [place], [address]. tel:[phone] OFFICE/OUTPA TIENT VISIT, EST [facility], [address], [place], [place], [address], tel:[phone] [facility] ADD (chief complaint) epilepsy1 (chief complaint) Attention deficitEpilepsy Keon Rehman. [address], [place], [place], [address] , [place]. [phone] Referring Provider: Joan Calero [facility], [place], [place], [address]. tel:[phone] PREV VISIT, NEW, AGE 18-39 [facility], [facility] [address], [place], [place], [address], [place] tel:[phone] [facility] PHysical (chief complaint) Encntr for general adult medical exam w/o abnormal findings 7 Keon Rehman. [address], [place], [place], [address] , [place]. [phone] Referring Provider: Joan Calero [facility] [address], [place], [place], [address]. tel:[phone] Family History Family Member Type Diagnosis Age At Onset Mother Problem (finding) Alive and well Brother Problem (finding) Seizure disorder Father Problem (finding) Alive and well Payers Payer name Insurance type Covered libertarian ID Osman cooper(s) [facility] [id number] Social History Type Description Quantity Date Captured Comments Alcohol Use Details No Caffeine Use Details Unknown Tobacco Use Status Never smoked tobacco 2024 Smoking Status Never smoker Sex Female Vital Signs Date / Time: Height Weight BMI Pulse Rate Blood Pressure Temperature Respiratory Rate Body Surface Area Head Circumference BMI percentile Pulse Ox Inhaled Ox 10:41 AM 61.00 in 124.40 lbs 23.5 0 kg/m eter (2) 87 /min 110/70 mm[Hg] 98.0 F 16 /min Chief Complaint And Reason For Visit From encounter dated '06/29/2024 10:35'. chest pain1 (chief complaint). Description: pt c/o acute onset of midsternal chest pain since 10 days ago. Pt denies any exertional chest pain. Pt denies any sob. Pt denies any diaphoresis or any nausea. Pt denies any radiation to neck or arm. Pt thinks that the pain sometimes radiating around her rib to her mid back Pt denies any nausea or GERD Pt denies any recent travel or bedrest. Pt states that the pain is sharp and dull. Pt denies any trigger factor .Pt states that pain usually occurs 6-10 times per day randomly and lasting about 30 mins to one hour. Pt denies any palpitation. Pt deniesany positional pain or worsening pain with breathing Plan Of Treatment Date Type Action Status Referral Ordered: CHEST X-RAY PA/LAT TWO-VIEWS ordered Referral Ordered: CARDIOVASCULAR STRESS TEST ordered Referral Ordered: ROSA DOZIER -[facility] Service Providers : Oxygen Equipment Technician (related to Pain in right foot) ordered Referral Referred To: ROSA DOZIER [facility] [place], [place], [phone] Ordered: Referrals: Podiatric Medicine & Surgery Service Providers : Oxygen Equipment Technician. ROSA DOZIER. Evaluate and treat ordered Referral Ordered: US THYROID ordered Referral Ordered: Physical Therapy (related to Muscle spasm of back) ordered Referral Referred To: Physical Therapy Ordered: Referrals: Physical Therapy. Evaluate and treat ordered History Of Present Illness Encounter Date Complaint History Of Prese nt Illness chest pain1 pt c/o acute ons et of midsternal chest pain since 10 days ago. Pt denies any exertional chest pain. Pt denies any sob. Pt denies any diaphoresis or any nausea. Pt denies any radiation to neck or arm. Pt thinks that the pain sometimes radiating around her rib to her mid back Pt denies any nausea or GERD Pt denies any recent travel or bedrest. Pt states that the pain is sharp and dull. Pt denies any trigger factor .Pt states that pain usually occurs 6-10 times per day randomly and lasting about 30 mins to one hour. Pt denies any palpitation. Pt denies any positional pain or worsening pain with breathing 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 Patient feels scatterbrained. Patient feel poor focus and difficulty completing tasks. Patient states that Adderall is helping with symptoms. Patient feels more focused. Pt feels more energy. Patient denies any headache, dry mouth, headache, chest pain. Patient denies any appetite loss. 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 Patient feels scatterbrained. Patient feel poor focus and difficulty completing tasks. Patient states that Adderall is helping with symptoms. Patient feels more focused. Pt feels more energy. Patient denies any headache, dry mouth, headache, chest pain. Patient denies any appetite loss. physical Pt needs annual physical pt has ADD Pt doing ok with adderall Pt has history of seizure Pt is on lamictal and she has not had any seizure for years Pt sees neurology. 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 Patient feels scatterbrained. Patient feel poor focus and difficulty completing tasks. Patient states that Adderall is helping with symptoms. Patient feels more focused. Pt feels more energy. Patient denies any headache, dry mouth, headache, chest pain. Patient denies any appetite loss. anxiety1 Pt has chronic a nxiety Pt denies any depression or any suicidal or homicidal thought. Pt denies any crying spells Pt takes buspar and doing ok anxiety1 Pt has chronic a nxiety. Pt denies any depression or any suicidal or homicidal thought Pt denies any crying spells. Pt doing ok with buspar. 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 Patient feels scatterbrained. Patient feel poor focus and difficulty completing tasks. Patient states that Adderall is helping with symptoms. Patient feels more focused. Pt feels more energy. Patient denies any headache, dry mouth, headache, chest pain. Patient denies any appetite loss. anxiety1 Pt has chronic a nxiety with mild depression Pt denies any suicidal or homicidal thought. 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 Patient feels scatterbrained. Patient feel poor focus and difficulty completing tasks. Patient states that Adderall is helping with symptoms. Patient feels more focused. Pt feels more energy. Patient denies any headache, dry mouth, headache, chest pain. Patient denies any appetite loss. cramp1 Pt started to [place] ve some menstrual cramp lately despite on IUD Pt does not have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
--- OUTSIDE RECORDS SUMMARY | 2024-06-29 11:42 | XMS_ITS | Clinical Summary ---
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 Name Role Phone Ori Herbert MD Primary Care Provider [phone] Allergies No known active allergies Medications dextroamphetamin e-amphetamine (ADDERALL) 20 mg tablet 1 tablet (20 mg total) PT is taking 20 mg QAM & 10 mg QNoon 03/20/2020 Active lamoTRIgine (LaMICtal) 200 mg tabletIndication s:Nonintractable generalized idiopathic epilepsy without status epilepticus (HCC) Take 2 tablets (400 mg total) by mouth 2 (two) times a day 360 tablet 3 02/04/2024 02/04/20 25 Active Active Problems Problem Noted Date Diagnosed Date 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 Prior medical records from [facility] have been reviewed during today's visit. She reports no seizures over the past 1 year interval. She has no tolerability issues with lamotrigine. She is in need of refill of medication at this time is requesting same. I have renewed her lamotrigine 400 mg b.i.d.. I will see her back in the office in 1 year. Encounters Date Type Department Care Team Description 06/09/2024 Telephone [facility] [address] [place] [address] Margoth Eaton NP from Last 3 Months Surgical History Surgery Date Site/Laterality Comments TONSILLECTOMY APPENDECTOMY ORAL SURGERY Medical History Medical History Date Comments Seizures (HCC) ADD (attention deficit disorder) Depression Family History Medical History Relation Name Comments Seizures Brother No Known Problems Father Migraines Mother Relation Name Status Comments Brother Alive Father Alive Mother Alive Social History Tobacco Use Types Packs/Day Years Used Date Smoking Tobacco: Former Smokeless Tobacco: Never Tobacco Cessation:Counseling Given: Not Answered Comments Unknown Sex and Gender Information Value Date Recorded Sex Assigned at Not on file Legal Sex Female 2:37 AM [employer] Gender Identity Not on file Sexual Orientation Not on file Obstetrics History Last Filed Vital Signs Vital Sign Reading Time Taken Comments Blood Pressure 100/60 02/04/2024 3:12 PM [employer] Pulse 85 02/04/2024 3:12 PM [employer] Temperature 36.5 C (97.7 F) 08/21/2021 1:03 PM CDT Respiratory Rate 20 02/04/2024 3:12 PM [employer] Oxygen Saturation 99% 02/04/2024 3:12 PM [employer] Inhaled Oxygen Concentration - - Weight 52.2 kg (115 lb) 02/04/2024 3:12 PM [employer] Height 154.9 cm (5' 1 ) 02/04/2024 3:12 PM [employer] Body Mass Index 21.73 02/04/2024 3:12 PM [employer] Plan of Treatment Health Maintenance Due Date Last Done Comments Cervical Cancer Screening 1986 Depression Screening 1986 Hepatitis C Screening 1986 DTaP/Tdap/Td Vaccine (6 - Tdap) 1997 06/10/1991, 12/28/1989, 11/07/1988, Additional history exists Varicella Vaccines (1 of 2 - 13+ 2-dose series) 07/24/1999 Regular Well Visit/Exam 18-64 2004 Influenza Vaccine (Season Ended) 2024 Hepatitis B Screening Completed 05/11/1996, 997 HPV Vaccines Aged Out No longer eligi ble based on patient's age to complete this topic Pneumococcal vaccine <65 Aged Out No longer eligible based on patient's age to complete this topic Insurance [facility] Care Teams Muffler Mechanic Relationship Specialty Start Date End Date Ori Herbert MD [facility] [place] [address] PCP - General Family Medicine 04/19/20
--- OUTSIDE RECORDS SUMMARY | 2024-06-29 11:42 | XMS_ITS | Referral Summary ---
Author Organization [facility] [place] [facility] Address [facility] [place] [address] Care Team Providers Care Police Detective Name Role Phone Ori Herbert MD Primary Care Provider [phone] Encounters Date Type Department Care Team Description 06/09/2024 Telephone [facility] [address] [place] [address] Margoth Eaton NP from Last 3 Months Allergies No known active allergies Medications dextroamphetamin [...] 03/27/2020 Assessment & Plan (04/19/2020 12:57 PM [employer]): Patient is a prior patient of [facility] 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 Prior medical records from [facility] have been reviewed during today's visit. She reports no seizures over the past 1 year interval. She has no tolerability issues with lamotrigine. She is in need of refill of medication at this time is requesting same. I have renewed her lamotrigine 400 mg b.i.d.. I will see her back in the office in 1 year. Social History Tobacco Use Types Packs/Day Years Used Date Smoking Tobacco: Former Smokeless Tobacco: Never Tobacco Cessation:Counseling Given: Not Answered Comments Unknown Sex and Gender Information Value Date Recorded Sex Assigned at Not on file Legal Sex Female 2:37 AM [employer] Gender Identity Not on file Sexual Orientation Not on file Last Filed Vital Signs Vital Sign Reading Time Taken Comments Blood Pressure 100/60 02/04/2024 3:12 PM [employer] Pulse 85 02/04/2024 3:12 PM [employer] Temperature 36.5 C (97.7 F) 08/21/2021 1:03 PM CDT Respiratory Rate 20 02/04/2024 3:12 PM [employer] Oxygen Saturation 99% 02/04/2024 3:12 PM [employer] Inhaled Oxygen Concentration - - Weight 52.2 kg (115 lb) 02/04/2024 3:12 PM [employer] Height 154.9 cm (5' 1 ) 02/04/2024 3:12 PM [employer] Body Mass Index 21.73 02/04/2024 3:12 PM [employer] Plan of Treatment Not on file Insurance [id number] [place] [address] Care Teams Police Detective Relationship Specialty Start Date End Date Ori Herbert MD [address] [place] [address] PCP - General Family Medicine 04/19/20
--- OUTSIDE RECORDS SUMMARY | 2024-06-29 11:42 | XMS_ITS | Clinical Summary ---
Author Organization [facility] Address [address] [place] [address] Care Team Providers Care Supervisor Tower Name Role Phone Unavailable Primary Care Provider Unavailabl e Medications dextroamphetami ne-amphetamine (ADDERALL) 10 mg tablet Take 2 tablets by mouth in the morning and 1 tablet in the early afternoon. 90 Tablet 05/02/2022 11:09 AM EXTENSION ASSOCIATE 05/01/2022 Active dextroamphetami ne-amphetamine (ADDERALL) 20 mg tablet Take 1 tablet by mouth daily in the morning and 0.5 tablets in the afternoon. 45 Tablet 11/20/2022 3:19 PM CDT 11/20/2022 Active dextroamphetami ne-amphetamine (AdderalL) 20 mg tablet Take 1 Tablet (20 mg) by mouth daily in the morning and 1/2 tablet in the early afternoon. Max Daily Amount: 20 mg 45 Tablet 05/09/2023 3:09 PM EXTENSION ASSOCIATE 05/07/2023 Active Encounters Date Type Department Care Team Description 05/07/2024 External Device Data [facility] Provider, Abstract 05/06/2024 External Device Data [facility] Provider, Abstract 05/03/2024 External Device Data [facility] Provider, Abstract 04/20/2024 External Device Data [facility] Provider, Abstract 04/19/2024 External Device Data [facility] Provider, Abstract from Last 3 Months Social History Tobacco Use Types Packs/Day Years Used Date Smoking Tobacco: Never Assessed Comments Unknown Sex and Gender Information Value Date Recorded Sex Assigned at Not on file Legal Sex Female 11:06 AM EXTENSION ASSOCIATE Gender Identity Not on file Sexual Orientation Not on file Plan of Treatment Health Maintenance Due Date Last Done Comments DTAP/TDAP/TD VACCINES (1 - Tdap) 2005 HEPATITIS B VACCINES (1 of 3 - 19+ 3-dose series) 2005 HPV/Cotest (21-29) 07/24/2007 CERVICAL CANCER SCREENING 2016 HPV/Cotest (30-65) 2016 PAP SMEAR 2016 INFLUENZA VACCINE (#1) 2023 HPV VACCINES Aged Out No longer eligi ble based on patient's age to complete this topic Insurance [employer]
[2024-06-29 12:21] LABS: D Dimer 0.35 ug/mL (<0.48)
== END 2024-06-29 10:21 | disposition home or self-care (01) ==
PROVIDERS: PCP Emergency Medicine; Visit Provider Emergency Medicine
DX: R07.89 Other chest pain (principal)
CPT/HCPCS: 36415; 71046; 85380

== ENCOUNTER 2024-11-03 15:40 | Emergency (ER) | payer OTHER, SELFPAY ==
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
--- OUTSIDE RECORDS SUMMARY | 2024-10-15 17:42 | XMS_ITS | Continuity of Care Document ---
Author Organization [facility] Address [address] [facility] [place] [address] [place] [address] Phone Care Team Providers Care Marketing Senior Recruiter Name Role Phone Ori Herbert MD Unavailable [...] Diagnoses Date Provider Providers Copied on Encounter [facility], [address] [place] [address] Jose Daniel Zavala, [place], [address], [place] tel:[phone] [facility] No Information 5 [place] Rehman. [address], [place], [place], [address] , [place]. tel:[phone] OFFICE/OUTPA TIENT VISIT, [facility], [address], [place], [place], [address], [place] tel:[phone] [facility] ADD (chief complaint) Attention deficit 5 [place] Rehman. [address], [place], [place], [address] , [place]. tel:[phone] OFFICE/OUTPA TIENT VISIT, [facility], [address], [place], [place], [address], [place] tel:[phone] [facility] ADD (chief complaint) anxiety1 (chief complaint) Attention deficitGeneralized Anxiety Disorder 5 [place] Rehman. [address], [place], [place], [address] , [place]. tel:[phone] OFFICE/OUTPA TIENT VISIT, [facility], [address], [place], [place], [address], [place] tel:[phone] [facility] chest pain1 (chief complaint) ADD (chief complaint) Ant chest-wall painAttention deficit June- 5 [place] Rehman. [address], [place], [place], [address] , [place]. [phone] OFFICE/OUTPA TIENT VISIT, [facility], [address], [place], [place], [address], [place] tel:[phone] [facility] chest pain1 (chief complaint) Ant chest-wall pain May-3 5 [place] Rehman. [address], [place], [place], [address] , [place]. tel:[phone] OFFICE/OUTPA TIENT VISIT, [facility], [address], [place], [place], [address], [place] tel:[phone] [facility] ADD (chief complaint) anxiety1 (chief complaint) Attention deficitGeneralized Anxiety Disorder 5 [place] Rehman. [address], [place], [place], [address] , [place]. tel: [phone] OFFICE/OUTPA TIENT VISIT, [facility], [address], [place], [place], [address], [place] tel:[phone] [facility] ADD (chief complaint) Attention deficit 5 [place] Rehman. [address], [place], [place], [address] , [place]. tel: [phone] PREV VISIT, EST, AGE 18-39 [facility], [address], [place], [place], [address], [place] [phone] [facility] physical (chief complaint) Encounter for general adult medical examination without abnormal findings 5 [place] Rehman. [address], [place], [place], [address] , [place]. tel: [phone] OFFICE/OUTPA TIENT VISIT, [facility], [address], [place], [place], [address], [place] tel:[phone] [facility] ADD (chief complaint) anxiety1 (chief complaint) Attention deficitGeneralized Anxiety Disorder 4 [place] Rehman. [address], [place], [place], [address] , [place]. tel: [phone] OFFICE/OUTPA TIENT VISIT, [facility], [address], [place], [place], [address], [place] tel:[phone] [facility] ADD (chief complaint) anxiety1 (chief complaint) Attention deficitGeneralized Anxiety Disorder 4 [place] Rehman. [address], [place], [place], [address] , [place]. tel: [phone] OFFICE/OUTPA TIENT VISIT, [facility], [address], [place], [place], [address], [place] tel:[phone] [facility] ADD (chief complaint) anxiety1 (chief complaint) Attention deficitGeneralized Anxiety Disorder 4 [place] Sanchez [address], [place], [place], [address] , [place]. tel:[phone] OFFICE/OUTPA TIENT VISIT, [facility], [address], [place], [place], [address], [place] tel:[phone] [facility] ADD (chief complaint) anxiety1 (chief complaint) cramp1 (chief complaint) Generalized Anxiety DisorderAttention deficitIrregular period 4 Ke[place] Sanchez [address], [place], [address] , [place]. tel:[phone] OFFICE/OUTPA TIENT VISIT, [facility], [address], [place], [place], [address], [place] tel:[phone] [facility] ADD (chief complaint) anxiety1 (chief complaint) Attention deficitGeneralized Anxiety DisorderEpilepsy May-0 4 [place] Sanchez [address], [place], [place], [address] , [place]. tel:[phone] OFFICE/OUTPA TIENT VISIT, [facility], [address], [place], [place], [address], [place] [phone] [facility] anxiety1 (chief complaint) ADD (chief complaint) Attention deficitGeneralized Anxiety Disorder Apr-0 4 [place] Sanchez [address], [place], [place], [address] , [place]. tel: [phone] OFFICE/OUTPA TIENT VISIT, [facility], [address], [place], [place], [address], [place] tel:[phone] [facility] ADD (chief complaint) anxiety1 (chief complaint) Generalized Anxiety DisorderAttention deficit Fe 4 [place] Sanchez [address], [place], [place], [address] , [place]. tel:[phone] PREV VISIT, EST, AGE 18-39 [facility], [address], [place], [place], [address], [place] tel:[phone] [facility] Medicine physical (chief complaint) Encounter for general adult medical examination without abnormal findings 4 [place] Rehman. [address], [place], [place], [address] , [place]. [phone] OFFICE/OUTPA TIENT VISIT, [facility], [address], [place], [place], [address], [place] tel:[phone] [facility] anxiety1 (chief complaint) ADD (chief complaint) fatigue1 (chief complaint) Attention deficitGeneralized Anxiety DisorderFatigue 3 [place] Sanchez [address], [place], [place], [address] , [place]. [phone] OFFICE/OUTPA TIENT VISIT, [facility], [address], [place], [place], [address], [place] tel:[phone] [facility] ADD (chief complaint) anxiety1 (chief complaint) Attention deficitGeneralized Anxiety Disorder 3 [place] Rehman. [address], [place], [place], [address] , [place]. [phone] OFFICE/OUTPA TIENT VISIT, [facility], [address], [place], [place], [address], [place] tel:[phone] [facility] ADD (chief complaint) Attention deficit 3 [place] Rehman. [address], [place], [place], [address] , [place]. tel:[phone] OFFICE/OUTPA TIENT VISIT, [facility], [address], [place], [place], [address], [place] tel:[phone] [facility] ADD (chief complaint) seizure1 (chief complaint) Attention deficitEpilepsy 3 Herbert Ori. [address], [place], [place], [address] , [place]. tel:[phone] OFFICE/OUTPA TIENT VISIT, [facility], [address], [place], [place], [address], [place] tel:[phone] [facility] ADD (chief complaint) Attention deficit 3 [place] Ori. [address], [place], [place], [address] , [place]. tel:[phone] OFFICE/OUTPA TIENT VISIT, [facility], [address], [place], [place], [address], [place] tel:[phone] [facility] ADD (chief complaint) Attention deficit 3 [place] Rehman. [address], [place], [place], [address] , [place]. tel:[phone] OFFICE/OUTPA TIENT VISIT, [facility], [address], [place], [place], [address], [place] tel:[phone] [facility] ADD (chief complaint) Attention deficit 3 [place] Ori. [address], [place], [address] , [place]. tel:[phone] OFFICE/OUTPA TIENT VISIT, [facility], [address], [place], [place], [address], [place] tel:[phone] [facility] ADD (chief complaint) Attention deficit 3 Herbert Ori. [address], [place], [place], [address] , [place]. tel:[phone] OFFICE/OUTPA TIENT VISIT, [facility], [address], [place], [place], [address], [place] tel:[phone] [facility] ADD (chief complaint) Attention deficit 3 [place] Rehman. [address], [place], [place], [address] , [place]. tel:[phone] OFFICE/OUTPA TIENT VISIT, EST [facility], [address], [place], [place], [address], [place] tel:[phone] [facility] ADD (chief complaint) foot pain1 (chief complaint) Attention deficitPain in right foot 3 [place] Rehman. [address], [place], [place], [address] , [place]. tel:[phone] OFFICE/OUTPA TIENT VISIT, EST [facility], [address], [place], [place], [address], [place] tel:[phone] [facility] Medicine ADD (chief complaint) weight gain1 (chief complaint) Attention deficitAbnormal weight gain 3 [place] Rehman. [address], [place], [place], [address] , [place]. tel:[phone] OFFICE/OUTPA TIENT VISIT, EST [facility], [address], [place], [place], [address], [place] tel:[phone] [facility] ADD (chief complaint) weight gain1 (chief complaint) Abnormal weight gainAttention deficit 3 [place] Rehman. [address], [place], [place], [address] , [place]. [phone] PREV VISIT, EST, AGE 18-39 [facility], [address], [place], [place], [address], [place] tel:[phone] [facility] Medicine physical (chief complaint) Encounter for general adult medical examination without abnormal findings 3 [place] Rehman. [address], [place], [place], [address] , [place]. [phone] OFFICE/OUTPA TIENT VISIT, [facility], [address], [place], [place], [address], [place] tel:[phone] [facility] Medicine ADD (chief complaint) back pain1 (chief complaint) weight loss1 (chief complaint) Attention deficitAbnormal weight lossMuscle spasm of back Nov-0 2 Herbert Ori. [address], [place], [place], [address] , [place]. tel:[phone] OFFICE/OUTPA TIENT VISIT, EST [facility], [address], [place], [place], [address], [place] tel:[phone] [facility] low back pain1 (chief complaint) ADD (chief complaint) Muscle spasm of backAttention deficit Aug-0 2 Herbert Ori. [address], [place], [place], [address] , [place]. [phone] OFFICE/OUTPA TIENT VISIT, [facility], [address], [place], [place], [address], [place] tel:[phone] [facility] ADD (chief complaint) back pain1 (chief complaint) Attention deficitMuscle spasm of back June-0 2 [place] Rehman. [address], [place], [place], [address] , [place]. [phone] OFFICE/OUTPA TIENT VISIT, [facility], [address], [place], [place], [address], [place] tel:[phone] [facility] epileps1 (chief complaint) ADD (chief complaint) EpilepsyAttention deficit Apr-0 2 [place] Rehman. [address], [place], [place], [address] , [place]. tel:[phone] PREV VISIT, EST, AGE 18-39 [facility], [address], [place], [place], [address], [place] tel:[phone] [facility] physical (chief complaint) Encounter for general adult medical examination without abnormal findings Jan-0 1 [place] Rehman. [address], [place], [place], [address] , [place]. tel:[phone] OFFICE/OUTPA TIENT VISIT, [facility], [address], [place], [place], [address], [place] tel:[phone] [facility] pink eye1 (chief complaint) Acute follicular conjunctivitis, right eye Nov-0 1 [place] Sanchez [address], [place], [place], [address] , [place]. tel:[phone] OFFICE/OUTPA TIENT VISIT, [facility], [address], [place], [place], [address], [place] tel:[phone] [facility] ADD (chief complaint) Attention deficit Nov-0 1 [place] Sanchez [address], [place], [place], [address] , [place]. tel:[phone] OFFICE/OUTPA TIENT VISIT, [facility], [address], [place], [place], [address], [place] tel:[phone] [facility] add (chief complaint) Attention deficit 1 [place] Sanchez [address], [place], [place], [address] , [place]. tel:[phone] OFFICE/OUTPA TIENT VISIT, [facility], [address], [place], [place], [address], [place] tel:[phone] [facility] ADD (chief complaint) Attention deficit May-2 1 [place] Sanchez [address], [place], [place], [address] , [place]. tel:[phone] OFFICE/OUTPA TIENT VISIT, [facility], [address], [place], [place], [address], [place] tel:[phone] [facility] ADD (chief complaint) Attention deficit 1 [place] Sanchez [address], [place], [place], [address] , [place]. tel:[phone] OFFICE/OUTPA TIENT VISIT, [facility], [address], [place], [place], [address], [place] tel:[phone] [facility] ADD (chief complaint) seizure1 (chief complaint) Attention deficitEpilepsy Dec- 0 [place] Sanchez [address], [place], [place], [address] , [place]. tel:[phone] PREV VISIT, EST, AGE 18-39 [facility], [address], [place], [place], [address], [place] tel:[phone] [facility] physical (chief complaint) Encounter for general adult medical examination without abnormal findings Sep-1 0- 0 [place] Sanchez [address], [place], [place], [address] , [place]. tel:[phone] OFFICE/OUTPA TIENT VISIT, [facility], [address], [place], [place], [address], [place] tel:[phone] [facility] ADD (chief complaint) Attention deficit Aug- 0 [place] Sanchez [address], [place], [place], [address] , [place]. tel:[phone] OFFICE/OUTPA TIENT VISIT, EST [facility], [address], [place], [place], [address], [place] tel:[phone] [facility] ADD (chief complaint) Attention deficitEpilepsy May-3 0 0 [place] Sanchez [address], [place], [place], [address] , [place]. tel:[phone] Referring Provider: Ori Herbert [address], [place], [place], [address]. tel:[phone] OFFICE/OUTPA TIENT VISIT, EST [facility], [address], [place], [place], [address], [place] tel:[phone] [facility] ADD (chief complaint) EpilepsyAttention deficit 0 [place] Franco [address], [place], [place], [address] , [place]. tel:[phone] Referring Provider: Joan Calero [address], [place], [place], [address]. tel:[phone] OFFICE/OUTPA TIENT VISIT, EST [facility], [address], [place], [place], [address], [place] tel:[phone] [facility] ADD (chief complaint) epilepsy1 (chief complaint) Attention deficitEpilepsy 9 [place] Rehman. [address], [place], [place], [address] , [place]. tel:[phone] Referring Provider: Joan Calero [address], [place], [place], [address]. tel:[phone] PREV VISIT, EST, AGE 18-39 [facility], [address], [place], [place], [address], [place] tel:[phone] [facility] PHysical (chief complaint) Encntr for general adult medical exam w/o abnormal findings 9 [place] eRhman. [address], [place], [place], [address] , [place]. tel:[phone] Referring Provider: Joan Calero [address], [place], [place], [address]. tel:[phone] OFFICE/OUTPA TIENT VISIT, EST [facility], [address], [place], [place], [address], [place] tel:[phone] [facility] ADD (chief complaint) weight loss1 (chief complaint) anxiety1 (chief complaint) Attention deficitAbnormal weight lossViral infectionGeneralize d Anxiety Disorder 9 [place] Rehman. [address], [place], [place], [address] , [place]. tel:[phone] Referring Provider: Joan Calero [address], [place], [place], [address]. tel:[phone] OFFICE/OUTPA TIENT VISIT, [facility], [address], [place], [place], [address], [place] tel:[phone] [facility] ADD (chief complaint) Epilepsy1 (chief complaint) EpilepsyAttention deficit 9 [place] Rehman. [address], [place], [place], [address] , [place]. [phone] Referring Provider: Joan Calero [address], [place], [place], [address]. tel:[phone] OFFICE/OUTPA TIENT VISIT, [facility], [address], [place], [place], [address], [place] tel:[phone] [facility] ADD (chief complaint) epilepsy1 (chief complaint) EpilepsyAttention deficit 8 [place] Rehman. [address], [place], [place], [address] , [place]. tel:[phone] Referring Provider: Joan Calero [address], [place], [place], [address]. tel:[phone] OFFICE/OUTPA TIENT VISIT, [facility], [address], [place], [place], [address], [place] tel:[phone] [facility] epilepsy1 (chief complaint) ADD (chief complaint) EpilepsyAttention deficit 8 [place] Rehman. [address], [place], [place], [address] , [place]. [phone] Referring Provider: Joan Calero [address], [place], [place], [address]. tel:[phone] PREV VISIT, EST, AGE 18-39 [facility], [address], [place], [place], [address], [place] [phone] [facility] Medicine Physical1 (chief complaint) Encntr for general adult medical exam w/o abnormal findings 8 [place] Rehman. [address], [place], [place], [address] , [place]. tel:[phone] Referring Provider: Joan Calero [address], [place], [place], [address]. tel:[phone] OFFICE/OUTPA TIENT VISIT, [facility], [address], [place], [place], [address], [place] tel:[phone] [facility] ADD (chief complaint) epilepsy1 (chief complaint) EpilepsyAttention deficit 8 [place] Rehman. [address], [place], [place], [address] , [place]. [phone] Referring Provider: Ori Herbert, [address], [place], [place], [address]. tel:[phone] OFFICE/OUTPA TIENT VISIT, [facility], [address], [place], [place], [address], [place] [phone] [facility] ADD (chief complaint) Attention deficit 7 [place] Rehman. [address], [place], [place], [address] , [place]. [phone] Referring Provider: Joan Calero [address], [place], [place], [address]. tel:[phone] OFFICE/OUTPA TIENT VISIT, [facility], [address], [place], [place], [address], [place] tel:[phone] [facility] ADD (chief complaint) epilepsy1 (chief complaint) EpilepsyAttention deficit 7 [place] Rehman. [address], [place], [place], [address] , [place]. [phone] Referring Provider: Joan Calero [address], [place], [place], [address]. tel:[phone] OFFICE/OUTPA TIENT VISIT, [facility], [address], [place], [place], [address], [place] tel:[phone] [facility] ADD (chief complaint) epilepsy1 (chief complaint) Attention deficitEpilepsy 7 [place] Rehman. [address], [place], [place], [address] , [place]. [phone] Referring Provider: Joan Calero [facility] [address], [place], [place], [address]. tel:[phone] PREV VISIT, NEW, AGE 18-39 [facility], [address], [place], [address], tel:[phone] [facility] PHysical (chief complaint) Encntr for general adult medical exam w/o abnormal findings [place] Rehman. [address] [facility] [place], [address] , [place]. [phone] Referring Provider: Ori Herbert, [address] [facility] [place], [address]. tel:[phone] Family History Family Member Type Diagnosis Age At Onset Mother Problem (finding) Alive and well Brother Problem (finding) Seizure disorder Father Problem (finding) Alive and well Payers Payer name Insurance type Covered democrat ID [facility] [id number] Social History Type Description Quantity Date Captured [...] -Podiatric Medicine & Surgery Service Providers : Rn Clinical Coordinator (related to Pain in right foot) ordered Referral Referred To: ROSA DOZIER [address] [facility] [place], [place], [phone] Ordered: Referrals: Podiatric Medicine & Surgery Service Providers : Rn Clinical Coordinator. RSOA DOZIER. Evaluate and treat ordered Referral Ordered: [...] weaned herself off buspar and doing ok ADD Patient has [...] Patient denies any appetite loss. chest pain1 Pt has history o f midsternal chest pain about 4 weeks ago Pt denies any exertional chest pain Pt had negative chest x ray and d-dimer Pt states that she has not had any recurrent chest pain since 4 weeks ago. Pt did not do ETT chest pain1 pt c/o acute ons et [...] anxiety1 Pt has chronic a nxiety and she [...] an bleeding pt denies any pelvic pain anxiety1 Pt has anxiety a nd depression [...] for over 5 years Pt sees neurology ADD Pt has ADD, Inat tentive type [...] of interests Pt doing better now ADD Patient has ADD. Patient has inattentive [...] she does not want to go to [facility] due to his location and she [...] Quit smoking Related to Atten tion deficit Diet and exercise Related to Epi lepsy Increase physical activity Relat ed to Epilepsy Assessments Type Assessment Date No Information
--- OUTSIDE RECORDS SUMMARY | 2024-11-03 15:42 | XMS_ITS | Clinical Summary ---
Author Organization [facility] Address [address] [place] [id number] Care Team Providers Care Adjutant General Name Role Phone Pankajjose aRosita DO Primary Care Provider [phone] Social History Tobacco Use Types Packs/Day Years [...] 4:32 PM CDT Height 156.2 cm (5' 1.5) 06/05/2016 4:35 PM CDT Body Mass Index 22.86 06/05/2016 4:32 PM CDT Plan of Treatment Health Maintenance Due Date Last Done Comments Cervical Cancer Screening Pa p Smear (Age 30 to 64) Every 3 Years 1986 Annual Physical 1989 DTaP, Tdap and Td Vaccines ( 1 - Tdap) 2005 Hepatitis B Vaccines (1 of 3 - 19+ 3-dose series) 2005 HPV Vaccines (1 - 3-dose SCD M series) 2013 Cervical Cancer Screening Pa p with HPV Testing (Age 30 to 64) Every 5 Years 2016 Cervical Cancer Screening with HPV 2016 COVID-19 Vaccine (2023-2 5 season) 2024 Hepatitis C Completed 05/06/2013 Meningococcal B Vaccine Aged Out No l [...] A,B,& C Routine 05/06/2013 9:4 2 AM COAL HANDLING SUPERVISOR from Last 3 Months or Most Recently Relevant to Health Maintenance Results * HEPATITIS A,B,& C (05/06/2013 9:42 AM COAL HANDLING SUPERVISOR) HAV IGM NON-REACTIVE TESTING PERFORMED AT [facility], A MEMBER OF THE [facility]. NR [employer] TO EPIC CONVERSION HEPATITIS B SURFACE AG NON-REACTIVE TESTING PERFORMED AT [facility], A MEMBER OF THE [facility]. NR [employer] TO EPIC CONVERSION HEP B SURFACE AB NON-REACTIVE TESTING PERFORMED AT [facility], A MEMBER OF THE [facility]. [employer] TO EPIC CONVERSION HEP B CORE TOTAL AB NON-REACTIVE TESTING PERFORMED AT [facility], A MEMBER OF THE [facility]. NR [employer] TO EPIC CONVERSION HEPATITIS C AB NON-REACTIVE TESTING PERFORMED AT [facility], A MEMBER OF THE [facility]. NR [employer] TO EPIC CONVERSION 05/06/2013 9:42 AM COAL HANDLING SUPERVISOR 05/06/2013 9:42 AM COAL HANDLING SUPERVISOR Narrative [facility] TO EPIC CONVERSION - 05/09/2013 3:45 PM CDT Result Communication: Call patient with results Rosita Patiño DO LABORATORY Final Result [facility] TO EPIC CONVERSION from Last 3 Months or Most Recently Relevant to Health Maintenance Care Teams Adjutant General Relationship Specialty Start Date End Date Rosita Patiño DO [address] [place] [address] PCP - General 06/05/16
--- OUTSIDE RECORDS SUMMARY | 2024-11-03 15:42 | XMS_ITS | Clinical Summary ---
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 Prior medical records from [facility] have been reviewed during today's visit. She reports no seizures over the past 1 year interval. She has no tolerability issues with lamotrigine. She is in need of refill of medication at this time is requesting same. I have renewed her lamotrigine 400 mg b.i.d.. I will see her back in the office in 1 year. Surgical History Surgery Date Site/Laterality Comments TONSILLECTOMY [...] on file Legal Sex Female 2:37 AM BOOT REPAIRER Gender Identity Not on file Sexual Orientation Not on file Obstetrics History Last Filed Vital Signs Vital Sign Reading Time Taken Comments Blood Pressure 100/60 02/04/2024 3:12 PM BOOT REPAIRER Pulse 85 02/04/2024 3:12 PM BOOT REPAIRER Temperature 36.5 C (97.7 F) 08/21/2021 1:03 PM CDT Respiratory Rate 20 02/04/2024 3:12 PM BOOT REPAIRER Oxygen Saturation 99% 02/04/2024 3:12 PM BOOT REPAIRER Inhaled Oxygen Concentration - - Weight 52.2 kg (115 lb) 02/04/2024 3:12 PM BOOT REPAIRER Height 154.9 cm (5' 1) 02/04/2024 3:12 PM BOOT REPAIRER Body Mass Index 21.73 02/04/2024 3:12 PM BOOT REPAIRER Plan of Treatment Health Maintenance Due Date Last Done Comments Cervical Cancer Screening 1986 Depression Screening 1986 Hepatitis C Screening 1986 DTaP/Tdap/Td Vaccine (6 - Tdap) 1997 06/10/1991, 12/28/1989, 11/07/1988, Additional history exists Varicella Vaccines (1 of 2 - 13+ 2-dose series) 07/24/1999 Regular Well Visit/Exam 18-64 2004 HPV Vaccines (1 - 3-dose SCDM series) 2013 Influenza Vaccine (#1) 2024 Hepatitis B Screening Completed 05/11/1996, 997 Pneumococcal vaccine <65 Aged Out No longer eligible based on patient's age to complete this topic Insurance [facility] Care Teams Recycling Attendant Relationship Specialty Start Date End Date Ori Herbert MD [address] [place] [address] PCP - General Family Medicine 04/19/20
--- OUTSIDE RECORDS SUMMARY | 2024-11-03 15:42 | XMS_ITS | Clinical Summary ---
Author Organization [facility] Address [address] [place] [address] Care Team Providers Care Joint Cutter Machine Name Role Phone Unavailable Primary Care Provider Unavailabl e Source Comments [facility],non-owned Affiliates and Associated Physician Practices is amultiple site organization consisting of ambulatory clinics and hospital sitesin [place], [place], [place] and [place]. This disclosure is being madepursuant to the Care Everywhere program and may not contain all information available regarding this patient. Last updated 17.[facility] Allergies No known active allergies Medications * [...] on file Legal Sex Female 1:49 PM WEATHERIZATION ADMINISTRATOR Gender Identity Not on file Sexual Orientation Not on file Last Filed Vital Signs Vital Sign Reading Time Taken Comments Blood Pressure 112/62 01/20/2012 11:38 AM WEATHERIZATION ADMINISTRATOR Pulse 90 01/20/2012 11:40 AM WEATHERIZATION ADMINISTRATOR Temperature - - Respiratory Rate 13 01/20/2012 11:40 AM WEATHERIZATION ADMINISTRATOR Oxygen Saturation 98% 01/20/2012 11:40 AM WEATHERIZATION ADMINISTRATOR Inhaled Oxygen Concentration - - Weight 74.4 kg (164 lb) 01/20/2012 11:38 AM WEATHERIZATION ADMINISTRATOR Height 154.9 cm (5' 1) 01/20/2012 11:40 AM WEATHERIZATION ADMINISTRATOR Body Mass Index 30.99 01/20/2012 11:38 AM WEATHERIZATION ADMINISTRATOR Plan of Treatment Health Maintenance Due Date Last Done Comments HIV SCREENING 2001 HEPATITIS C SCREENING 07/18/2004 DTAP/TDAP/TD VACCINES (1 - Tdap) 2005 HEPATITIS B VACCINE (1 of 3 - 19+ 3-dose series) 2005 HPV VACCINE (1 - 3-dose SCDM series) 2013 DEPRESSION SCREENING 03/02/2024 COVID-19 VACCINE (1 - 2023-2 5 season) 2024 INFLUENZA VACCINE (#1) 2024 ZOSTER VACCINE (1 of 2) 2036 [...]
--- OUTSIDE RECORDS SUMMARY | 2024-11-03 15:42 | XMS_ITS | Clinical Summary ---
Author Organization [facility] Address [address] [place] [address] Care Team Providers Care Soft Metals Engraver Hand Name Role Phone Unavailable Primary Care Provider Unavailabl e Medications dextroamphetami ne-amphetamine (ADDERALL) 10 mg tablet Take 2 tablets by mouth in the morning and 1 tablet in the early afternoon. 90 Tablet 05/02/2022 11:09 AM FORMULATION SCIENTIST 05/01/2022 Active dextroamphetami ne-amphetamine (ADDERALL) 20 mg [...] 20 mg 45 Tablet 05/09/2023 3:09 PM FORMULATION SCIENTIST 05/07/2023 Active Social History Tobacco Use Types Packs/Day Years Used Date Smoking Tobacco: Never Assessed Comments Unknown Sex and Gender Information Value Date Recorded Sex Assigned at Not on file Legal Sex Female 11:06 AM FORMULATION SCIENTIST Gender Identity Not on file Sexual Orientation Not on file Plan of Treatment Health Maintenance Due Date Last Done Comments DTAP/TDAP/TD VACCINES (1 - Tdap) 2005 HEPATITIS B VACCINES (1 of 3 - 19+ 3-dose series) 07/01 HPV/Cotest (21-29) 07/24/2007 HPV VACCINES (1 - 3-dose SCDM series) 2013 CERVICAL CANCER SCREENING 2016 HPV/Cotest (30-65) 2016 PAP SMEAR 2016 INFLUENZA VACCINE (#1) 2024 Insurance [employer]
[2024-11-03 15:44] VITALS: BP 134/87; PULSE 107; RESP 14; TEMP 36.5; O2SAT 100
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
[2024-11-03] MEDS: ACETAMINOPHEN 500 MG TABLET 1000 MG PO (16:08)
--- OUTSIDE RECORDS SUMMARY | 2024-11-03 16:15 | XMS_ITS | Clinical Summary ---
Author Organization [employer] Address [address] [address] Care Team Providers Care Utilization Manager Name Role Phone Unavailable Primary Care Provider Unavailabl e Medications dextroamphetami ne-amphetamine (ADDERALL) 10 mg tablet Take 2 tablets by mouth in the morning and 1 tablet in the early afternoon. 90 Tablet 05/02/2022 11:09 AM HAND LAUNDERER 05/01/2022 Active dextroamphetami ne-amphetamine (ADDERALL) 20 mg [...] 20 mg 45 Tablet 05/09/2023 3:09 PM HAND LAUNDERER 05/07/2023 Active Social History Tobacco Use Types Packs/Day Years Used Date Smoking Tobacco: Never Assessed Comments Unknown Sex and Gender Information Value Date Recorded Sex Assigned at Not on file Legal Sex Female 11:06 AM HAND LAUNDERER Gender Identity Not on file Sexual Orientation [...]
--- OUTSIDE RECORDS SUMMARY | 2024-11-03 16:15 | XMS_ITS | Clinical Summary ---
Author Organization [facility] Address [address] [place] [address] Care Team Providers Care Stripper And Printer Name Role Phone Pankajjose aRosita DO Primary Care Provider [phone] Social History Tobacco Use Types Packs/Day Years [...] A,B,& C Routine 05/06/2013 9:4 2 AM KNIFE SETTER from Last 3 Months or Most Recently Relevant to Health Maintenance Results * HEPATITIS A,B,& C (05/06/2013 9:42 AM KNIFE SETTER) HAV IGM NON-REACTIVE TESTING PERFORMED AT [facility], A MEMBER OF THE [facility]ENCE [facility]WORK. NR [employer] TO EPIC CONVERSION HEPATITIS B SURFACE AG NON-REACTIVE TESTING PERFORMED AT [facility], A MEMBER OF THE [facility]. NR [employer] TO EPIC CONVERSION HEP B SURFACE AB NON-REACTIVE TESTING PERFORMED AT [facility], A MEMBER OF THE [facility]. [employer] TO EPIC CONVERSION HEP B CORE TOTAL AB NON-REACTIVE TESTING PERFORMED AT [facility], A MEMBER OF THE [facility]. NR [employer] TO EPIC CONVERSION HEPATITIS C AB NON-REACTIVE TESTING PERFORMED AT [facility], A MEMBER OF THE [facility]. NR [employer] TO EPIC CONVERSION 05/06/2013 9:42 AM KNIFE SETTER 05/06/2013 9:42 AM KNIFE SETTER Narrative [employer] TO EPIC CONVERSION - 05/09/2013 3:45 PM CDT Result Communication: Call patient with results Rosita Patiño DO LABORATORY Final Result [employer] TO EPIC CONVERSION from Last 3 Months or Most Recently Relevant to Health Maintenance Care Teams Stripper And Printer Relationship Specialty Start Date End Date Rosita Patiño DO [address] [place] [address] PCP - General 06/05/16
--- OUTSIDE RECORDS SUMMARY | 2024-11-03 16:15 | XMS_ITS | Clinical Summary ---
Author Organization [facility] Address [address] [place] [address] Care Team Providers Care Project Scientist Name Role Phone Unavailable Primary Care Provider Unavailabl e Source Comments [facility],non-owned Affiliates and Associated Physician Practices is amultiple site organization consisting of ambulatory clinics and hospital sitesin [place], [place], [place] and [place]. This disclosure is being madepursuant to the Care Everywhere program and may not contain all information available regarding this patient. Last updated 17.[employer] [facility] Allergies No known active allergies Medications * [...] on file Legal Sex Female 1:49 PM SMOKE ROOM OPERATOR Gender Identity Not on file Sexual Orientation Not on file Last Filed Vital Signs Vital Sign Reading Time Taken Comments Blood Pressure 112/62 01/20/2012 11:38 AM SMOKE ROOM OPERATOR Pulse 90 01/20/2012 11:40 AM SMOKE ROOM OPERATOR Temperature - - Respiratory Rate 13 01/20/2012 11:40 AM SMOKE ROOM OPERATOR Oxygen Saturation 98% 01/20/2012 11:40 AM SMOKE ROOM OPERATOR Inhaled Oxygen Concentration - - Weight 74.4 kg (164 lb) 01/20/2012 11:38 AM SMOKE ROOM OPERATOR Height 154.9 cm (5' 1) 01/20/2012 11:40 AM SMOKE ROOM OPERATOR Body Mass Index 30.99 01/20/2012 11:38 AM SMOKE ROOM OPERATOR Plan of Treatment Health Maintenance Due Date [...]
--- OUTSIDE RECORDS SUMMARY | 2024-11-03 16:15 | XMS_ITS | Clinical Summary ---
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 Prior medical records from [facility] have been reviewed during today's visit. [...] on file Legal Sex Female 2:37 AM TWIST MAKER Gender Identity Not on file Sexual Orientation Not on file Obstetrics History Last Filed Vital Signs Vital Sign Reading Time Taken Comments Blood Pressure 100/60 02/04/2024 3:12 PM TWIST MAKER Pulse 85 02/04/2024 3:12 PM TWIST MAKER Temperature 36.5 C (97.7 F) 08/21/2021 1:03 PM CDT Respiratory Rate 20 02/04/2024 3:12 PM TWIST MAKER Oxygen Saturation 99% 02/04/2024 3:12 PM TWIST MAKER Inhaled Oxygen Concentration - - Weight 52.2 kg (115 lb) 02/04/2024 3:12 PM TWIST MAKER Height 154.9 cm (5' 1) 02/04/2024 3:12 PM TWIST MAKER Body Mass Index 21.73 02/04/2024 3:12 PM TWIST MAKER Plan of Treatment Health Maintenance Due Date [...] patient's age to complete this topic Insurance [facility] Care Teams Top Carrier Relationship Specialty Start Date End Date Ori Herbert MD [address] [place] [address] PCP - General Family Medicine 04/19/20
[2024-11-03 16:23] VITALS: BP 121/78; PULSE 100; RESP 16; TEMP 36.5; O2SAT 100
== END 2024-11-03 16:24 | disposition home or self-care (01) ==
LOC: ANHED 16:14
PROVIDERS: Emergency Provider Emergency Medicine; PCP Emergency Medicine
DX: T14.8XXA Other injury of unspecified body region, initial encounter (principal); G40.909 Epilepsy, unspecified, not intractable, without status epilepticus; V43.52XA Car driver injured in collision with other type car in traffic accident, initial encounter
CPT/HCPCS: 99283; A9270